=== PATIENT | male | born 1955 | race Two or more races ===

== ENCOUNTER 2018-10-15 18:16 | Inpatient (IN) | payer MEDICARE, OTHER ==
[2018-10-15 18:43] LABS: % BASOPHILS 0.7 % (0.0-2.0); % EOSINOPHILS 2.9 % (0.0-5.0); % LYMPHOCYTES 35.7 % (20.0-50.0); % MONOCYTES 10.9 % (2.0-10.0); % NEUTROPHILS 49.8 % (40.0-80.0); EOSINOPHILE ABSOLUTE 0.1 Th/cmm (0.1-0.4); HEMATOCRIT 27.7 % (41.0-60); LYMPHOCYTE ABSOLUTE 1.6 Th/cmm (1.5-3.0); MEAN CORPUSCULAR HEMOGLOBIN 26.1 pg (27.0-31.0); MEAN CORPUSCULAR HGB CONC 32.3 pg (28.0-36.0); MEAN PLATELET VOLUME 6.9 fl; MONOCYTE ABSOLUTE 0.5 Th/cmm (0.3-1.0); NEUTROPHILE ABSOLUTE 2.4 Th/cmm (1.8-8.0); PLATELET COUNT 216 Th/cmm (150-400); RED BLOOD COUNT 3.42 Mil/cmm (3.80-5.80); RED CELL DISTRIBUTION WIDTH 25.8 % (11.5-20.0); WHITE BLOOD COUNT 4.6 Th/cmm (4.8-10.8)
[2018-10-15 18:48] LABS: URINE SOURCE CLEAN C
[2018-10-15 18:55] LABS: URINE BILIRUBIN NEGATIVE (NEGATIVE); URINE BLOOD NEGATIVE (NEGATIVE); URINE GLUCOSE (UA) NEGATIVE (NEGATIVE); URINE KETONE NEGATIVE (NEGATIVE); URINE LEUKOCYTE ESTERASE NEGATIVE (NEGATIVE); URINE MICROSCOPIC INDICATED? YES; URINE NITRATE POSITIVE (NEGATIVE); URINE PH 7.5 (4.6 - 8.0); URINE PROTEIN NEGATIVE (NEGATIVE)
[2018-10-15 18:58] LABS: ALB/GLOB RATIO 0.7 (1.0-1.8); ALKALINE PHOSPHATASE 162 U/L (34-104); ANION GAP 7.7 (7.0-16.0); BILIRUBIN,TOTAL 0.9 mg/dL (0.3-1.0); BUN - UREA NITROGEN 11 mg/dL (7-25); CALCIUM SERUM 8.5 mg/dL (8.6-10.3); CARBON DIOXIDE 27.5 mEq/L (21.0-31.0); CHLORIDE 103 mEq/L (98-107); CREATININE - SERUM 0.6 mg/dL (0.7-1.3); GFR AFRICAN-AMERICAN > 60.0 ml/min (>90); GFR NON AFRICAN-AMERICAN > 60.0 ml/min; GLUCOSE 93 mg/dL (70-105); MAGNESIUM 1.8 mg/dL (1.9-2.7); PHOSPHOROUS 3.5 mg/dL (2.5-5.0); POTASSIUM SERUM 4.2 mEq/L (3.5-5.1); SGOT 72 U/L (13-39); SGPT/ALT 23 U/L (7-52); SODIUM SERUM 134 mEq/L (136-145); TOTAL PROTEIN,SERUM 7.4 gm/dL (6.0-8.3)
[2018-10-15 19:24] LABS: URINE CLARITY SLIGHT HAZY (CLEAR); URINE COLOR STRAW; URINE RBC NONE SEEN /hpf (0-5)
[2018-10-15 19:25] LABS: URINE BACTERIA FEW /hpf (NONE SEEN); URINE EPITHELIAL CELLS RARE /lpf (FEW)
--- NOTE | 2018-10-15 19:51 | ED Physician Chart ---
ED Chief Complaint/HPI - Patient Information Date Seen:: 10/15/18 Time Seen:: 18:30 Chief Complaint:: increased agitation History of Present Illness:: increased agitation Allergies:: Allergies Allergy/AdvReac Type Severity Reaction Status Date / Time codeine Allergy Verified 10/15/18 18:30 ibuprofen Allergy Verified 10/15/18 18:30 Vitals:: Vital Signs - 8 hr 10/15/18 18:30 Temp 98.2 F HR 59 RR 18 BP 105/54 O2 Sat % 98 Review:: Nurse's Note Reviewed, Transfer documents Reviewed ED Review of Systems - Review of Systems General/Constitutional: No fever, No chills, No weight loss, No weakness, No diaphoresis, No edema, No loss of appetite Skin: No skin lesions, No rash, No bruising Head: No headache, No light-headedness Eyes: No loss of vision, No pain, No diplopia ENT: No earache, No nasal drainage, No sore throat, No tinnitus Neck: No neck pain, No swelling, No thyromegaly, No stiffness, No mass noted Cardio Vascular: No chest pain, No palpitations, No PND, No orthopnea, No edema Pulmonary: No SOB, No cough, No sputum, No wheezing GI: No nausea, No vomiting, No diarrhea, No pain, No melena, No hematochezia, No constipation, No hematemesis G/U: No dysuria, No frequency, No hematuria Musculoskeletal: No bone or joint pain, No back pain, No muscle pain, Other ( LLE swelling) Endocrine: No polyuria, No polydipsia Hematopoietic: No bruising, No lymphadenopathy Allergic/Immuno: No urticaria, No angioedema Neurological: No syncope, No focal symptoms, No weakness, No paresthesia, No headache, No seizure, No dizziness, No confusion, No vertigo ED Past Medical History - Past Medical History Obtainable: No Past Medical History: PUD/GERD, Seizures, Other (chronic viral hepatitis C; anemia) Surgical History: other (LLE tib/fib years ago.) Family Medical History - Family Member Mother History Unknown: Yes ED Physical Exam - Physical Examination General/Constitutional: Awake, Well-developed, well-nourished, Alert, No distress, GCS 15, Non-toxic appearing, Ambulatory Other Gen/Cons comments:: unkempt appearing. Head: Atraumatic Eyes: Lids, conjuctiva normal, PERRL, EOMI ENMT: External ears, nose nl Neck: Nontender, No nuchal rigidity, No stridor Respiratory: Nl effort/Exclusion, Clear to Auscultation, No Wheeze/Rhonchi/Rales Cardio Vascular: RRR, No murmur, gallop, rubs, NL S1 S2 GI: No tenderness/rebounding/guarding, No organomegaly, No hernia, Normal BS's, Nondistended, No mass/bruits, No McBurney tenderness : No CVA tenderness Other Extremities comments:: LLE is two times larger than the RLE. Neuro/Psych: No focal deficits ED Labs/Radiology/EKG Results - Lab Results Results: Laboratory Tests 10/15/18 10/15/18 10/15/18 18:35 18:35 18:35 WBC 4.6 L RBC 3.42 L Hgb 9.0 L Hct 27.7 L MCV 81.0 MCH 26.1 L MCHC Differential 32.3 RDW 25.8 H Plt Count 216 MPV 6.9 Neutrophils % 49.8 Lymphocytes % 35.7 Monocytes % 10.9 H Eosinophils % 2.9 Basophils % 0.7 D-Dimer 480 H Sodium 134 L Potassium 4.2 Chloride 103 Carbon Dioxide 27.5 Anion Gap 7.7 BUN 11 Creatinine 0.6 L Est GFR ( Amer) > 60.0 Est GFR (Non-Af Amer) > 60.0 BUN/Creatinine Ratio 18.3 Glucose 93 Calcium 8.5 L Phosphorus 3.5 Magnesium 1.8 L Total Bilirubin 0.9 AST 72 H ALT 23 Alkaline Phosphatase 162 H Total Protein 7.4 Albumin 3.0 L Globulin 4.4 Albumin/Globulin Ratio 0.7 L Urine Source Urine Color Urine Clarity Urine pH Ur Specific [place] Urine Protein Urine Glucose (UA) Urine Ketones Urine Blood Urine Nitrate Urine Bilirubin Urine Urobilinogen Ur Leukocyte Esterase Urine RBC Urine WBC Ur Epithelial Cells Urine Bacteria 10/15/18 18:44 WBC RBC Hgb Hct MCV MCH MCHC Differential RDW Plt Count MPV Neutrophils % Lymphocytes % Monocytes % Eosinophils % Basophils % D-Dimer Sodium Potassium Chloride Carbon Dioxide Anion Gap BUN Creatinine Est GFR ( Amer) Est GFR (Non-Af Amer) BUN/Creatinine Ratio Glucose Calcium Phosphorus Magnesium Total Bilirubin AST ALT Alkaline Phosphatase Total Protein Albumin Globulin Albumin/Globulin Ratio Urine Source CLEAN C Urine Color STRAW Urine Clarity SLIGHT HAZY Urine pH 7.5 Ur Specific [place] 1.020 Urine Protein NEGATIVE Urine Glucose (UA) NEGATIVE Urine Ketones NEGATIVE Urine Blood NEGATIVE Urine Nitrate POSITIVE H Urine Bilirubin NEGATIVE Urine Urobilinogen 1.0 Ur Leukocyte Esterase NEGATIVE Urine RBC NONE SEEN Urine WBC 2-5 Ur Epithelial Cells RARE Urine Bacteria FEW ED Assessment - Assessment General Assessment: sign out given to Dr. Main to check the LLE ultrasound to r/o DVT and determine disposition and/or clearance for geropsych. patient's hematocrit is down to 27 from 28.9 on 10/08/2018. ED Septic Shock - . Is Septic Shock (SBP<90, OR Lactate>4 mmol\L) present?: No - <6hrs of presentation: Vital Signs: Vital Signs - 8 hr 10/15/18 18:30 Temp 98.2 F HR 59 RR 18 BP 105/54 O2 Sat % 98 ED Reassessment (Disposition) - Reassessment Reassessment Condition:: Unchanged - Diagnosis Diagnosis:: Increased agitation LLE swelling, r/o DVT Elevated d-dimer Anemia, hematocrit down to 27 from 28.9 on 10/08/2018 Elevated liver function test Early urinary tract infection
[2018-10-15] MEDS ORDERED: Sulfamethoxazole/TMP 800/160mg Tab PO ONE (19:57)
[2018-10-15] MEDS ORDERED: Sulfamethoxazole/TMP 800/160mg Tab ONE (21:03)
[2018-10-15 22:04] VITALS: BP 153/98
[2018-10-15] MEDS ORDERED: Maalox 30 mL Cup PO PRN (22:06)
[2018-10-15 22:28] LABS: CHOLESTEROL 90 mg/dL (<200); HDL -HIGH DENSITY LIPOPROTEIN 43 mg/dL (23-92); TRIGLYCERIDES 37 mg/dL (<150)
[2018-10-16] MEDS ORDERED: NADOLOL 20 MG PO SCH (09:00)
--- NOTE | 2018-10-16 09:00 | Diagnostic Imaging Report ---
Left lower extremity Doppler venous ultrasound exam HISTORY: Pain/swelling Sonographic sector images were obtained through the deep venous systems of the left leg. Associated Doppler data was obtained. The exam demonstrates patency of the common femoral, superficial femoral, popliteal, and posterior tibial veins. Specifically, no thrombus is seen. There are normal compressibility and augmentation responses. 2 rounded densities seen within the left groin region. The largest measures 1.5 cm. Echogenic centimeters are consistent with mildly enlarged lymph nodes. IMPRESSION: 1. No evidence of deep vein trophoblast 2. Findings consistent with mildly enlarged lymph nodes within the left groin area
[2018-10-16] MEDS: Pantoprazole 40 mg/Packet PO SCH (09:09)
[2018-10-16] MEDS: Ferrous Sulfate 325 MG TAB PO SCH (09:09)
[2018-10-16] MEDS: Multivitamin Tab PO SCH (09:09)
[2018-10-16 10:09] LABS: AMPHETAMINE URINE NEGATIVE (NEGATIVE); BARBITURATES URINE NEGATIVE (NEGATIVE); BENZODIAZEPINES QUAL URINE NEGATIVE (NEGATIVE); CANNABINOID THC NEGATIVE (NEGATIVE); COCAINE METABOLITE QUAL URINE NEGATIVE (NEGATIVE); METHADONE URINE NEGATIVE (NEGATIVE); METHAMPHETAMINES QUAL URINE NEGATIVE (NEGATIVE); OPIATES (MORPHINE) QUAL. URINE NEGATIVE (NEGATIVE); PHENCYCLIDINE (PCP) URINE NEGATIVE (NEGATIVE); TRICYCLICS (TCA) QUAL. URINE NEGATIVE (NEGATIVE)
--- NOTE | 2018-10-16 18:22 | History & Physical ---
ADMIT DATE: 10/16/2018 CHIEF COMPLAINT: Agitation. HISTORY OF PRESENT ILLNESS: This is a 63-year-old male, who is a custodial resident, admitted to the Geropsych Unit due to 1-day history of agitation. PAST MEDICAL HISTORY: PUD, GERD, seizures, chronic viral hepatitis C, and anemia. PAST SURGICAL HISTORY: Left lower extremity tibia and fibula surgery. ALLERGIES: CODEINE, IBUPROFEN. MEDICATIONS: Please see medication list. FAMILY HISTORY: Noncontributory. REVIEW OF SYSTEMS: GENERAL: Denies any fever and chills. CARDIOVASCULAR: Denies chest pain. RESPIRATORY: Denies shortness of breath. GASTROINTESTINAL: Denies nausea, vomiting, abdominal pain. GENITOURINARY: Denies increased frequency or dysuria. NEUROLOGIC: No headaches, seizures, or syncope. All systems reviewed and are negative. PHYSICAL EXAMINATION: GENERAL: The patient is well developed, well nourished, no apparent distress. VITAL SIGNS: Temperature 97.8, heart rate 62, blood pressure 153/98, respiration 18, O2 94%. HEENT: Head; normocephalic, atraumatic. NECK: Supple. No mass. LUNGS: Clear bilaterally. HEART: Regular rhythm. ABDOMEN: Soft, nontender. LABORATORY DATA: WBC 4.6, H and H 9.0, hematocrit 27.7. D-dimer 480. Sodium 134, potassium 4.2, chloride 103, BUN 11, creatinine 0.6, calcium 8.5, magnesium 1.8. DIAGNOSTICS: The patient had a bilateral lower extremity ultrasound done, impression is no evidence of DVT. ASSESSMENT: Agitation, gastroesophageal reflux disease, seizures, viral hepatitis C, anemia. Leukopenia, microcytic anemia, hyponatremia, hypocalcemia, hypomagnesemia. PLAN: The patient to continue custodial medications. Fall precautions will be initiated. Continue with ferrous sulfate daily. We will continue to monitor this patient. JOB# [id number]
--- NOTE | 2018-10-17 03:36 | Psychiatric Evaluation ---
DATE OF SERVICE: 10/15/2018 CHIEF COMPLAINT: "Increased agitation" according to the staff at [facility]. HISTORY OF PRESENT ILLNESS: The patient is a 63-year-old male who lives in [facility]. The patient was transferred to the hospital under my care because of increased agitation and increased irritability. The patient also has not been able to follow staff direction. He also is still on the unit and upon arrival, is angry and agitated and in irritable mood. He also needs lots of redirections with difficulty redirecting him. The patient has been taking Thorazine 200 mg twice a day and Seroquel 200 mg twice a day as well as Topamax 100 mg twice a day and Lexapro 10 mg every day with no help. He also at times seems to have refused to take medications. DICTATION ENDS HERE. JOB# [id number]
[2018-10-17] MEDS: Ferrous Sulfate 325 MG TAB PO SCH (09:09)
[2018-10-17] MEDS: Multivitamin Tab PO SCH (09:10)
[2018-10-17] MEDS: Pantoprazole 40 mg/Packet PO SCH (09:10)
--- NOTE | 2018-10-17 10:43 | Internal Medicine Prog Note ---
Internal Medicine Subjective - Subjective Service Date: 10/17/18 Patient seen and examined:: with staff, chart reviewed Patient is:: awake, verbal, talking, agitated Patient Complaints of:: other (General weakness.) Per staff patient has:: no adverse event, no episodes of fall Internal Medicine Objective - Results Result Diagrams: 10/15/18 18:35 10/15/18 18:35 Recent Labs: Laboratory Last Values WBC 4.6 Th/cmm (4.8-10.8) L 10/15/18 18:35 RBC 3.42 Mil/cmm (3.80-5.80) L 10/15/18 18:35 Hgb 9.0 gm/dL (12-16) L 10/15/18 18:35 Hct 27.7 % (41.0-60) L 10/15/18 18:35 MCV 81.0 fl (80-99) 10/15/18 18:35 MCH 26.1 pg (27.0-31.0) L 10/15/18 18:35 MCHC Differential 32.3 pg (28.0-36.0) 10/15/18 18:35 RDW 25.8 % (11.5-20.0) H 10/15/18 18:35 Plt Count 216 Th/cmm (150-400) 10/15/18 18:35 MPV 6.9 fl 10/15/18 18:35 Neutrophils % 49.8 % (40.0-80.0) 10/15/18 18:35 Lymphocytes % 35.7 % (20.0-50.0) 10/15/18 18:35 Monocytes % 10.9 % (2.0-10.0) H 10/15/18 18:35 Eosinophils % 2.9 % (0.0-5.0) 10/15/18 18:35 Basophils % 0.7 % (0.0-2.0) 10/15/18 18:35 D-Dimer 480 ng/mL (100-400) H 1819 18:35 Sodium 134 mEq/L (136-145) L 18 18:35 Potassium 4.2 mEq/L (3.5-5.1) 10/15/18 18:35 Chloride 103 mEq/L (98-107) 10/15/18 18:35 Carbon Dioxide 27.5 mEq/L (21.0-31.0) 10/15/18 18:35 Anion Gap 7.7 (7.0-16.0) 10/15/18 18:35 BUN 11 mg/dL (7-25) 10/15/18 18:35 Creatinine 0.6 mg/dL (0.7-1.3) L 10/15/18 18:35 Est GFR ( Amer) > 60.0 ml/min (>90) 10/15/18 18:35 Est GFR (Non-Af Amer) > 60.0 ml/min 10/15/18 18:35 BUN/Creatinine Ratio 18.3 10/15/18 18:35 Glucose 93 mg/dL (70-105) 10/15/18 18:35 Calcium 8.5 mg/dL (8.6-10.3) L 10/15/18 18:35 Phosphorus 3.5 mg/dL (2.5-5.0) 10/15/18 18:35 Magnesium 1.8 mg/dL (1.9-2.7) L 10/15/18 18:35 Total Bilirubin 0.9 mg/dL (0.3-1.0) 10/15/18 18:35 AST 72 U/L (13-39) H 10/15/18 18:35 ALT 23 U/L (7-52) 10/15/18 18:35 Alkaline Phosphatase 162 U/L (34-104) H 10/15/18 18:35 Total Protein 7.4 gm/dL (6.0-8.3) 10/15/18 18:35 Albumin 3.0 gm/dL (4.2-5.5) L 10/15/18 18:35 Globulin 4.4 gm/dL 10/15/18 18:35 Albumin/Globulin Ratio 0.7 (1.0-1.8) L 10/15/18 18:35 Triglycerides 37 mg/dL (<150) 10/15/18 18:35 Cholesterol 90 mg/dL (<200) 10/15/18 18:35 LDL Cholesterol Direct 43 mg/dL (75-193) L 10/15/18 18:35 HDL Cholesterol 43 mg/dL (23-92) 10/15/18 18:35 Urine Source CLEAN C 10/15/18 18:44 Urine Color STRAW 10/15/18 18:44 Urine Clarity SLIGHT HAZY (CLEAR) 10/15/18 18:44 Urine pH 7.5 (4.6 - 8.0) 10/15/18 18:44 Ur Specific [place] 1.020 (1.005-1.030) 10/15/18 18:44 Urine Protein NEGATIVE mg/dL (NEGATIVE) 10/15/18 18:44 Urine Glucose (UA) NEGATIVE mg/dL (NEGATIVE) 10/15/18 18:44 Urine Ketones NEGATIVE mg/dL (NEGATIVE) 10/15/18 18:44 Urine Blood NEGATIVE (NEGATIVE) 10/15/18 18:44 Urine Nitrate POSITIVE (NEGATIVE) H 10/15/18 18:44 Urine Bilirubin NEGATIVE (NEGATIVE) 10/15/18 18:44 Urine Urobilinogen 1.0 E.U./dL (0.2 - 1.0) 10/15/18 18:44 Ur Leukocyte Esterase NEGATIVE (NEGATIVE) 10/15/18 18:44 Urine RBC NONE SEEN /hpf (0-5) 10/15/18 18:44 Urine WBC 2-5 /hpf (0-5) 10/15/18 18:44 Ur Epithelial Cells RARE /lpf (FEW) 10/15/18 18:44 Urine Bacteria FEW /hpf (NONE SEEN) 10/15/18 18:44 Urine Opiates Screen NEGATIVE (NEGATIVE) 10/15/18 18:44 Urine Methadone Screen NEGATIVE (NEGATIVE) 10/15/18 18:44 Ur Barbiturates Screen NEGATIVE (NEGATIVE) 10/15/18 18:44 Ur Tricyclics Screen NEGATIVE (NEGATIVE) 10/15/18 18:44 Ur Phencyclidine Scrn NEGATIVE (NEGATIVE) 10/15/18 18:44 Amphetamines Screen NEGATIVE (NEGATIVE) 10/15/18 18:44 U Methamphetamines Scrn NEGATIVE (NEGATIVE) 10/15/18 18:44 U Benzodiazepines Scrn NEGATIVE (NEGATIVE) 10/15/18 18:44 U Cocaine Metab Screen NEGATIVE (NEGATIVE) 10/15/18 18:44 U Cannabinoids Screen NEGATIVE (NEGATIVE) 10/15/18 18:44 - Physical Exam Vitals and I&O: Vital Signs Temp 97.3 F 10/17/18 06:34 Pulse 70 10/17/18 09:09 Resp 20 10/17/18 06:34 BP 135/78 10/17/18 09:09 Pulse Ox 99 10/17/18 06:34 Intake & Output 10/16/18 10/17/18 10/17/18 18:59 06:59 18:59 Intake Total 1800 120 Balance 1800 120 Intake: Oral 1800 120 Other: # Voids 4 1 # Bowel Movements 1 0 Active Medications: Current Medications Acetaminophen (Tylenol) 650 mg PO Q4HR PRN PRN Reason: Mild Pain / Temp above 100 Stop: 12/14/18 22:12 Last Admin: 10/16/18 14:09 Dose: 650 mg Al Hydrox/Mg Hydrox/Simethicone (Maalox) 30 ml PO Q4HR PRN PRN Reason: GI DISTRESS Stop: 12/14/18 22:05 Ascorbic Acid (Vitamin C) 500 mg PO DAILY [facility] Stop: 12/15/18 08:59 Last Admin: 10/17/18 09:10 Dose: 500 mg Ferrous Sulfate (Iron) 325 mg PO DAILY [facility] Stop: 12/15/18 08:59 Last Admin: 10/17/18 09:09 Dose: 325 mg Folic Acid (Folate) 1 mg PO DAILY [facility] Stop: 12/15/18 08:59 Last Admin: 10/17/18 09:09 Dose: 1 mg Lorazepam (Ativan) 0.5 mg PO Q4HR PRN; Protocol PRN Reason: Agitation Stop: 11/14/18 22:05 Last Admin: 10/17/18 09:09 Dose: 0.5 mg Metoprolol Tartrate (Lopressor) 50 mg PO BID [facility] Stop: 12/15/18 08:59 Last Admin: 10/17/18 09:09 Dose: 50 mg Multivitamins/Vitamin C (Theragran) 1 tab PO DAILY [facility] Stop: 12/15/18 08:59 Last Admin: 10/17/18 09:10 Dose: 1 tab Pantoprazole Sodium (Protonix) 40 mg PO DAILY [facility] Stop: 12/15/18 08:59 Last Admin: 10/17/18 09:10 Dose: 40 mg Quetiapine Fumarate (Seroquel) 25 mg PO BID [facility]; Protocol Stop: 12/15/18 08:59 Last Admin: 10/17/18 09:09 Dose: 25 mg Tramadol HCl (Ultram) 50 mg PO Q8H PRN PRN Reason: Pain (Severe) Stop: 12/14/18 22:13 Last Admin: 10/16/18 19:54 Dose: 50 mg Zolpidem Tartrate (Ambien) 5 mg PO HS PRN PRN Reason: Insomnia Stop: 12/14/18 22:05 General: weak, other (Very agitated and Irritable.) HEENT: PERRLA Neck: Supple, No JVD Lungs: CTAB Cardiovascular: Normal S1, Normal S2 Abdomen: soft, non-distended Extremities: other (Hx of left lower extremity tibia and fibula surgery.) Neurological: no change, disorganized Internal Medicine Assmt/Plan - Assessment Assessment: Agitation Irritable Anemia Chronic Viral Hep C PUD GERD Hyponatremia Hypocalcemia Hypomagnesemia History of Seizures - Plan Plan: Continue to monitor patient closely Monitor Labs, Hemoglobin levels Continue present meds as directed Continue taking Ferrous Sulfate daily Monitor diet Fall precaution Seizure precaution Patient to followup with Dr. Montejo for Psych management Continue present care management Nutritional Asmnt/Malnutr-PDOC - Dietary Evaluation Malnutrition Findings (Please click <Entered> for more info): see orders
--- NOTE | 2018-10-17 23:02 | Progress Notes ---
DATE: SUBJECTIVE: Chart reviewed and the patient interviewed. Also discussed the patient's condition with the staff and reviewed records and labs. The patient is complaining of swollen left leg and the patient has pitting edema and for real, his left leg is swollen. He is still agitated and he is still anxious and still needs lots of redirections. The patient also continue pacing and asking different questions to the people and inclusive. Otherwise, the patient is compliant with taking his medications with no side effects. ASSESSMENT: The patient is still confused and agitated. TREATMENT PLAN: Continue to monitor his behavior and his condition closely. Also, we will ask Dr. Recinos to evaluate his leg condition and will continue to follow up. [facility]# [id number]
[2018-10-18] MEDS: Pantoprazole 40 mg/Packet PO SCH (08:52)
[2018-10-18] MEDS: Ferrous Sulfate 325 MG TAB PO SCH (08:52)
[2018-10-18] MEDS: Multivitamin Tab PO SCH (08:53)
--- NOTE | 2018-10-18 15:32 | Progress Notes ---
DATE: 10/18/2018 SUBJECTIVE: Chart reviewed and the patient interviewed. Also discussed the patient's condition with the staff and reviewed records and labs. The patient is still anxious and is still in a depressed mood. The patient also is still suspicious at times and is still paranoid. He also is still interacting minimally. The patient also wants to be left alone. Otherwise, the patient is compliant with taking his medications and no side effects of medications. ASSESSMENT: The patient is still anxious and is still in irritable mood. TREATMENT PLAN: Continue to monitor his behavior and his condition closely. Also, continue adjusting psychotropic medications and follow up closely. [facility]# [id number]
--- NOTE | 2018-10-18 20:15 | Internal Medicine Prog Note ---
Internal Medicine Subjective - Subjective Service Date: 10/18/18 Patient is:: awake, verbal, talking, agitated Patient Complaints of:: other (General weakness.) Per staff patient has:: no adverse event, no episodes of fall Internal Medicine Objective - Results Result Diagrams: 10/15/18 18:35 10/15/18 18:35 Recent Labs: Laboratory Last Values WBC 4.6 Th/cmm (4.8-10.8) L 10/15/18 18:35 RBC 3.42 Mil/cmm (3.80-5.80) L 10/15/18 18:35 Hgb 9.0 gm/dL (12-16) L 10/15/18 18:35 Hct 27.7 % (41.0-60) L 10/15/18 18:35 MCV 81.0 fl (80-99) 10/15/18 18:35 MCH 26.1 pg (27.0-31.0) L 10/15/18 18:35 MCHC Differential 32.3 pg (28.0-36.0) 10/15/18 18:35 RDW 25.8 % (11.5-20.0) H 10/15/18 18:35 Plt Count 216 Th/cmm (150-400) 10/15/18 18:35 MPV 6.9 fl 10/15/18 18:35 Neutrophils % 49.8 % (40.0-80.0) 10/15/18 18:35 Lymphocytes % 35.7 % (20.0-50.0) 10/15/18 18:35 Monocytes % 10.9 % (2.0-10.0) H 10/15/18 18:35 Eosinophils % 2.9 % (0.0-5.0) 10/15/18 18:35 Basophils % 0.7 % (0.0-2.0) 10/15/18 18:35 D-Dimer 480 ng/mL (100-400) H 10/15/18 18:35 Sodium 134 mEq/L (136-145) L 10/15/18 18:35 Potassium 4.2 mEq/L (3.5-5.1) 10/15/18 18:35 Chloride 103 mEq/L (98-107) 10/15/18 18:35 Carbon Dioxide 27.5 mEq/L (21.0-31.0) 10/15/18 18:35 Anion Gap 7.7 (7.0-16.0) 10/15/18 18:35 BUN 11 mg/dL (7-25) 10/15/18 18:35 Creatinine 0.6 mg/dL (0.7-1.3) L 10/15/18 18:35 Est GFR ( Amer) > 60.0 ml/min (>90) 10/15/18 18:35 Est GFR (Non-Af Amer) > 60.0 ml/min 10/15/18 18:35 BUN/Creatinine Ratio 18.3 10/15/18 18:35 Glucose 93 mg/dL (70-105) 10/15/18 18:35 Calcium 8.5 mg/dL (8.6-10.3) L 10/15/18 18:35 Phosphorus 3.5 mg/dL (2.5-5.0) 10/15/18 18:35 Magnesium 1.8 mg/dL (1.9-2.7) L 10/15/18 18:35 Total Bilirubin 0.9 mg/dL (0.3-1.0) 10/15/18 18:35 AST 72 U/L (13-39) H 10/15/18 18:35 ALT 23 U/L (7-52) 10/15/18 18:35 Alkaline Phosphatase 162 U/L (34-104) H 10/15/18 18:35 Total Protein 7.4 gm/dL (6.0-8.3) 10/15/18 18:35 Albumin 3.0 gm/dL (4.2-5.5) L 10/15/18 18:35 Globulin 4.4 gm/dL 10/15/18 18:35 Albumin/Globulin Ratio 0.7 (1.0-1.8) L 10/15/18 18:35 Triglycerides 37 mg/dL (<150) 10/15/18 18:35 Cholesterol 90 mg/dL (<200) 10/15/18 18:35 LDL Cholesterol Direct 43 mg/dL (75-193) L 10/15/18 18:35 HDL Cholesterol 43 mg/dL (23-92) 10/15/18 18:35 Urine Source CLEAN C 10/15/18 18:44 Urine Color STRAW 10/15/18 18:44 Urine Clarity SLIGHT HAZY (CLEAR) 10/15/18 18:44 Urine pH 7.5 (4.6 - 8.0) 10/15/18 18:44 Ur Specific [place] 1.020 (1.005-1.030) 10/15/18 18:44 Urine Protein NEGATIVE mg/dL (NEGATIVE) 10/15/18 18:44 Urine Glucose (UA) NEGATIVE mg/dL (NEGATIVE) 10/15/18 18:44 Urine Ketones NEGATIVE mg/dL (NEGATIVE) 10/15/18 18:44 Urine Blood NEGATIVE (NEGATIVE) 10/15/18 18:44 Urine Nitrate POSITIVE (NEGATIVE) H 10/15/18 18:44 Urine Bilirubin NEGATIVE (NEGATIVE) 10/15/18 18:44 Urine Urobilinogen 1.0 E.U./dL (0.2 - 1.0) 10/15/18 18:44 Ur Leukocyte Esterase NEGATIVE (NEGATIVE) 10/15/18 18:44 Urine RBC NONE SEEN /hpf (0-5) 10/15/18 18:44 Urine WBC 2-5 /hpf (0-5) 10/15/18 18:44 Ur Epithelial Cells RARE /lpf (FEW) 10/15/18 18:44 Urine Bacteria FEW /hpf (NONE SEEN) 10/15/18 18:44 Urine Opiates Screen NEGATIVE (NEGATIVE) 10/15/18 18:44 Urine Methadone Screen NEGATIVE (NEGATIVE) 10/15/18 18:44 Ur Barbiturates Screen NEGATIVE (NEGATIVE) 10/15/18 18:44 Ur Tricyclics Screen NEGATIVE (NEGATIVE) 10/15/18 18:44 Ur Phencyclidine Scrn NEGATIVE (NEGATIVE) 10/15/18 18:44 Amphetamines Screen NEGATIVE (NEGATIVE) 10/15/18 18:44 U Methamphetamines Scrn NEGATIVE (NEGATIVE) 10/15/18 18:44 U Benzodiazepines Scrn NEGATIVE (NEGATIVE) 10/15/18 18:44 U Cocaine Metab Screen NEGATIVE (NEGATIVE) 10/15/18 18:44 U Cannabinoids Screen NEGATIVE (NEGATIVE) 10/15/18 18:44 - Physical Exam Vitals and I&O: Vital Signs Temp 96.9 F 10/18/18 14:00 Pulse 64 10/18/18 17:23 Resp 20 10/18/18 14:00 BP 127/65 10/18/18 17:23 Pulse Ox 98 10/18/18 14:00 Intake & Output 10/18/18 10/18/18 10/19/18 06:59 18:59 06:59 Intake Total 960 Balance 960 Intake: Oral 960 Other: # Voids 4 # Bowel Movements 1 Active Medications: Current Medications Acetaminophen (Tylenol) 650 mg PO Q4HR PRN PRN Reason: Mild Pain / Temp above 100 Stop: 12/14/18 22:12 Last Admin: 10/16/18 14:09 Dose: 650 mg Acetaminophen (Tylenol) 325 mg PO DAILY [facility] Stop: 12/17/18 08:59 Last Admin: 10/18/18 08:52 Dose: 325 mg Al Hydrox/Mg Hydrox/Simethicone (Maalox) 30 ml PO Q4HR PRN PRN Reason: GI DISTRESS Stop: 12/14/18 22:05 Ascorbic Acid (Vitamin C) 500 mg PO DAILY [facility] Stop: 12/15/18 08:59 Last Admin: 10/18/18 08:53 Dose: 500 mg Ferrous Sulfate (Iron) 325 mg PO DAILY [facility] Stop: 12/15/18 08:59 Last Admin: 10/18/18 08:52 Dose: 325 mg Folic Acid (Folate) 1 mg PO DAILY [facility] Stop: 12/15/18 08:59 Last Admin: 10/18/18 08:53 Dose: 1 mg Lorazepam (Ativan) 0.5 mg PO Q4HR PRN; Protocol PRN Reason: Agitation Stop: 11/14/18 22:05 Last Admin: 10/18/18 17:23 Dose: 0.5 mg Metoprolol Tartrate (Lopressor) 50 mg PO BID [facility] Stop: 12/15/18 08:59 Last Admin: 10/18/18 17:23 Dose: 50 mg Multivitamins/Vitamin C (Theragran) 1 tab PO DAILY [facility] Stop: 12/17/18 08:59 Last Admin: 10/18/18 08:53 Dose: 1 tab Pantoprazole Sodium (Protonix) 40 mg PO DAILY [facility] Stop: 12/15/18 08:59 Last Admin: 10/18/18 08:52 Dose: 40 mg Quetiapine Fumarate (Seroquel) 25 mg PO BID [facility]; Protocol Stop: 12/15/18 08:59 Last Admin: 10/18/18 17:22 Dose: 25 mg Tramadol HCl (Ultram) 50 mg PO Q8H PRN PRN Reason: Pain (Severe) Stop: 12/14/18 22:13 Last Admin: 10/17/18 21:29 Dose: 50 mg Zolpidem Tartrate (Ambien) 5 mg PO HS PRN PRN Reason: Insomnia Stop: 12/14/18 22:05 Last Admin: 10/17/18 23:31 Dose: 5 mg General: weak, other (Very agitated and Irritable.) HEENT: PERRLA Neck: Supple, No JVD Lungs: CTAB Cardiovascular: Normal S1, Normal S2 Abdomen: soft, non-distended Extremities: other (Hx of left lower extremity tibia and fibula surgery.) Neurological: no change, disorganized Internal Medicine Assmt/Plan - Assessment Assessment: Agitation Irritable Anemia Chronic Viral Hep C PUD GERD Hyponatremia Hypocalcemia Hypomagnesemia History of Seizures - Plan Plan: continue feso4 fall precautions cpm Nutritional Asmnt/Malnutr-PDOC - Dietary Evaluation Malnutrition Findings (Please click <Entered> for more info): Nutritional Asmnt/Malnutrition Start: 10/18/18 13: 58 Text: Status: Complete Freq: Protocol: Document 10/18/18 13:58 LCHENG (Rec: 10/18/18 14:07 BRITTNEY ANN [email or web address]) Nutritional Asmnt/Malnutrition Patient General Information Nutritional Screening Moderate Risk Diagnosis Psychosis Pertinent Medical Hx/Surgical Hx PUD/GERD, seizrues, chronic viral hep C, anemia, LLE tib/ fib years ago Subjective Information Pt seen sitting in garfield-chair, confused, not able to participate communication. Per EMR, PO intake 100%. Current Diet Order/ Nutrition Support LORI Pertinent Medications vit C, iton, folate, theragran , protonix, seroquel Pertinent Labs 10/15 Na 134, Cr 0.6, Ca 8.5, Mg 1.8, Alb 3.0 Nutritional Hx/Data Height 5 ft 8 in Height (Calculated Centimeters) 172.7 Current Weight (lbs) 165 lb Weight (Calculated Kilograms) 74.8 Weight (Calculated Grams) 42474.7 [place] Body Weight 154 Body Mass Index (BMI) 25.0 Weight Status Overweight GI Symptoms GI Symptoms None Last BM 10/17 Difficult in: None Skin Integrity/Comment: intact Current %PO Good (75-100%) Estimated Nutritional Goals BEE in Kcals: Using Current wt Calories/Kcals/Kg 23-27 Kcals Calculated 1400-9548 Protein: Using Current wt Protein g/k Protein Calculated 75 Fluid: ml 1724-2024ml (1ml/kcal) Nutritional Problem No current Nutrition Prob Problem N/A Malnutrition Alert Is there a minimum of two criteria No selected? Query Text:Check all the applicable criteria. A minimum of two criteria are recommended for diagnosis of either severe or non-severe malnutrition. Malnutrition Related to Morbid Obesity Malnutrition related to morbid obesity No Intervention/Recommendation Comments 1. Continue with LORI diet as ordered. Nurses to assist with meals as needed. 2. Monitor PO intake, wt, labs and skin integrity 3. F/U as low risk in 7 days Expected Outcomes/Goals Expected Outcomes/Goals 1. PO intake to meet at least 75% of nutritional needs. 2. Wt stability, skin to remain intact, labs to approach WNL.
[2018-10-19] MEDS: Pantoprazole 40 mg/Packet PO SCH (09:34)
[2018-10-19] MEDS: Multivitamin Tab PO SCH (09:34)
[2018-10-19] MEDS: Ferrous Sulfate 325 MG TAB PO SCH (09:36)
[2018-10-20] MEDS: Ferrous Sulfate 325 MG TAB PO SCH (09:25)
[2018-10-20] MEDS: Multivitamin Tab PO SCH (09:27)
[2018-10-20] MEDS: Pantoprazole 40 mg/Packet PO SCH (09:28)
--- NOTE | 2018-10-20 10:13 | Internal Medicine Prog Note ---
Internal Medicine Subjective - Subjective Patient seen and examined:: chart reviewed Patient is:: awake, verbal, talking, other (confused) Patient Complaints of:: other (General weakness.) Per staff patient has:: no adverse event, no episodes of fall Internal Medicine Objective - Results Result Diagrams: 10/15/18 18:35 10/15/18 18:35 Recent Labs: Laboratory Last Values WBC 4.6 Th/cmm (4.8-10.8) L 10/15/18 18:35 RBC 3.42 Mil/cmm (3.80-5.80) L 10/15/18 18:35 Hgb 9.0 gm/dL (12-16) L 10/15/18 18:35 Hct 27.7 % (41.0-60) L 10/15/18 18:35 MCV 81.0 fl (80-99) 10/15/18 18:35 MCH 26.1 pg (27.0-31.0) L 10/15/18 18:35 MCHC Differential 32.3 pg (28.0-36.0) 10/15/18 18:35 RDW 25.8 % (11.5-20.0) H 10/15/18 18:35 Plt Count 216 Th/cmm (150-400) 10/15/18 18:35 MPV 6.9 fl 10/15/18 18:35 Neutrophils % 49.8 % (40.0-80.0) 10/15/18 18:35 Lymphocytes % 35.7 % (20.0-50.0) 10/15/18 18:35 Monocytes % 10.9 % (2.0-10.0) H 10/15/18 18:35 Eosinophils % 2.9 % (0.0-5.0) 10/15/18 18:35 Basophils % 0.7 % (0.0-2.0) 10/15/18 18:35 D-Dimer 480 ng/mL (100-400) H 10/15/18 18:35 Sodium 134 mEq/L (136-145) L 18 18:35 Potassium 4.2 mEq/L (3.5-5.1) 10/15/18 18:35 Chloride 103 mEq/L (98-107) 10/15/18 18:35 Carbon Dioxide 27.5 mEq/L (21.0-31.0) 10/15/18 18:35 Anion Gap 7.7 (7.0-16.0) 10/15/18 18:35 BUN 11 mg/dL (7-25) 10/15/18 18:35 Creatinine 0.6 mg/dL (0.7-1.3) L 10/15/18 18:35 Est GFR ( Amer) > 60.0 ml/min (>90) 10/15/18 18:35 Est GFR (Non-Af Amer) > 60.0 ml/min 10/15/18 18:35 BUN/Creatinine Ratio 18.3 10/15/18 18:35 Glucose 93 mg/dL (70-105) 10/15/18 18:35 Calcium 8.5 mg/dL (8.6-10.3) L 10/15/18 18:35 Phosphorus 3.5 mg/dL (2.5-5.0) 10/15/18 18:35 Magnesium 1.8 mg/dL (1.9-2.7) L 10/15/18 18:35 Total Bilirubin 0.9 mg/dL (0.3-1.0) 10/15/18 18:35 AST 72 U/L (13-39) H 10/15/18 18:35 ALT 23 U/L (7-52) 10/15/18 18:35 Alkaline Phosphatase 162 U/L (34-104) H 10/15/18 18:35 Total Protein 7.4 gm/dL (6.0-8.3) 10/15/18 18:35 Albumin 3.0 gm/dL (4.2-5.5) L 10/15/18 18:35 Globulin 4.4 gm/dL 10/15/18 18:35 Albumin/Globulin Ratio 0.7 (1.0-1.8) L 10/15/18 18:35 Triglycerides 37 mg/dL (<150) 10/15/18 18:35 Cholesterol 90 mg/dL (<200) 10/15/18 18:35 LDL Cholesterol Direct 43 mg/dL (75-193) L 10/15/18 18:35 HDL Cholesterol 43 mg/dL (23-92) 10/15/18 18:35 Urine Source CLEAN C 10/15/18 18:44 Urine Color STRAW 10/15/18 18:44 Urine Clarity SLIGHT HAZY (CLEAR) 10/15/18 18:44 Urine pH 7.5 (4.6 - 8.0) 10/15/18 18:44 Ur Specific [place] 1.020 (1.005-1.030) 10/15/18 18:44 Urine Protein NEGATIVE mg/dL (NEGATIVE) 10/15/18 18:44 Urine Glucose (UA) NEGATIVE mg/dL (NEGATIVE) 10/15/18 18:44 Urine Ketones NEGATIVE mg/dL (NEGATIVE) 10/15/18 18:44 Urine Blood NEGATIVE (NEGATIVE) 10/15/18 18:44 Urine Nitrate POSITIVE (NEGATIVE) H 10/15/18 18:44 Urine Bilirubin NEGATIVE (NEGATIVE) 10/15/18 18:44 Urine Urobilinogen 1.0 E.U./dL (0.2 - 1.0) 10/15/18 18:44 Ur Leukocyte Esterase NEGATIVE (NEGATIVE) 10/15/18 18:44 Urine RBC NONE SEEN /hpf (0-5) 10/15/18 18:44 Urine WBC 2-5 /hpf (0-5) 10/15/18 18:44 Ur Epithelial Cells RARE /lpf (FEW) 10/15/18 18:44 Urine Bacteria FEW /hpf (NONE SEEN) 10/15/18 18:44 Urine Opiates Screen NEGATIVE (NEGATIVE) 10/15/18 18:44 Urine Methadone Screen NEGATIVE (NEGATIVE) 10/15/18 18:44 Ur Barbiturates Screen NEGATIVE (NEGATIVE) 10/15/18 18:44 Ur Tricyclics Screen NEGATIVE (NEGATIVE) 10/15/18 18:44 Ur Phencyclidine Scrn NEGATIVE (NEGATIVE) 10/15/18 18:44 Amphetamines Screen NEGATIVE (NEGATIVE) 10/15/18 18:44 U Methamphetamines Scrn NEGATIVE (NEGATIVE) 10/15/18 18:44 U Benzodiazepines Scrn NEGATIVE (NEGATIVE) 10/15/18 18:44 U Cocaine Metab Screen NEGATIVE (NEGATIVE) 10/15/18 18:44 U Cannabinoids Screen NEGATIVE (NEGATIVE) 10/15/18 18:44 - Physical Exam Vitals and I&O: Vital Signs Temp 98 F 10/20/18 06:08 Pulse 98 10/20/18 09:27 Resp 18 10/20/18 06:08 BP 132/80 10/20/18 09:27 Pulse Ox 94 10/20/18 06:08 Intake & Output 10/19/18 10/20/18 10/20/18 18:59 06:59 18:59 Intake Total 1200 240 Balance 1200 240 Intake: Oral 1200 240 Other: # Voids 3 # Bowel Movements 1 0 Active Medications: Current Medications Acetaminophen (Tylenol) 650 mg PO Q4HR PRN PRN Reason: Mild Pain / Temp above 100 Stop: 12/14/18 22:12 Last Admin: 10/16/18 14:09 Dose: 650 mg Acetaminophen (Tylenol) 325 mg PO DAILY [facility] Stop: 12/17/18 08:59 Last Admin: 10/20/18 09:25 Dose: Not Given Al Hydrox/Mg Hydrox/Simethicone (Maalox) 30 ml PO Q4HR PRN PRN Reason: GI DISTRESS Stop: 12/14/18 22:05 Ascorbic Acid (Vitamin C) 500 mg PO DAILY [facility] Stop: 12/15/18 08:59 Last Admin: 10/20/18 09:27 Dose: 500 mg Ferrous Sulfate (Iron) 325 mg PO DAILY [facility] Stop: 12/15/18 08:59 Last Admin: 10/20/18 09:25 Dose: 325 mg Folic Acid (Folate) 1 mg PO DAILY [facility] Stop: 12/15/18 08:59 Last Admin: 10/20/18 09:25 Dose: 1 mg Lorazepam (Ativan) 0.5 mg PO Q4HR PRN; Protocol PRN Reason: Agitation Stop: 11/14/18 22:05 Last Admin: 10/20/18 09:33 Dose: 0.5 mg Metoprolol Tartrate (Lopressor) 50 mg PO BID [facility] Stop: 12/15/18 08:59 Last Admin: 10/20/18 09:27 Dose: 50 mg Multivitamins/Vitamin C (Theragran) 1 tab PO DAILY [facility] Stop: 12/17/18 08:59 Last Admin: 10/20/18 09:27 Dose: 1 tab Pantoprazole Sodium (Protonix) 40 mg PO DAILY [facility] Stop: 12/15/18 08:59 Last Admin: 10/20/18 09:28 Dose: 40 mg Quetiapine Fumarate (Seroquel) 25 mg PO BID [facility]; Protocol Stop: 12/15/18 08:59 Last Admin: 10/20/18 09:27 Dose: 25 mg Tramadol HCl (Ultram) 50 mg PO Q8H PRN PRN Reason: Pain (Severe) Stop: 12/14/18 22:13 Last Admin: 10/17/18 21:29 Dose: 50 mg Zolpidem Tartrate (Ambien) 5 mg PO HS PRN PRN Reason: Insomnia Stop: 12/14/18 22:05 Last Admin: 10/19/18 22:01 Dose: 5 mg General: weak, other (Irritable.) HEENT: PERRLA Neck: Supple, No JVD Lungs: CTAB Cardiovascular: Normal S1, Normal S2 Abdomen: soft, non-distended Extremities: other (Hx of left lower extremity tibia and fibula surgery.) Neurological: no change, disorganized Internal Medicine Assmt/Plan - Assessment Assessment: Agitation Irritable Anemia Chronic Viral Hep C PUD GERD Hyponatremia Hypocalcemia Hypomagnesemia History of Seizures - Plan Plan: Continue to monitor patient closely Monitor Labs, Hemoglobin levels Continue present meds as directed Continue taking Ferrous Sulfate daily Monitor diet Fall precaution Seizure precaution Patient to followup with Dr. Montejo for Psych management Continue present care management Nutritional Asmnt/Malnutr-PDOC - Dietary Evaluation Malnutrition Findings (Please click <Entered> for more info): Nutritional Asmnt/Malnutrition Start: 10/18/18 13: 58 Text: Status: Complete Freq: Protocol: Document 10/18/18 13:58 LCHENG (Rec: 10/18/18 14:07 LCHENG ANN [email or web address]) Nutritional Asmnt/Malnutrition Patient General Information Nutritional Screening Moderate Risk Diagnosis Psychosis Pertinent Medical Hx/Surgical Hx PUD/GERD, seizrues, chronic viral hep C, anemia, LLE tib/ fib years ago Subjective Information Pt seen sitting in garfield-chair, confused, not able to participate communication. Per EMR, PO intake 100%. Current Diet Order/ Nutrition Support LORI Pertinent Medications vit C, iton, folate, theragran , protonix, seroquel Pertinent Labs 10/15 Na 134, Cr 0.6, Ca 8.5, Mg 1.8, Alb 3.0 Nutritional Hx/Data Height 1.73 m Height (Calculated Centimeters) 172.7 Current Weight (lbs) 74.843 kg Weight (Calculated Kilograms) 74.8 Weight (Calculated Grams) 76817.7 [place] Body Weight 154 Body Mass Index (BMI) 25.0 Weight Status Overweight GI Symptoms GI Symptoms None Last BM 2/20 Difficult in: None Skin Integrity/Comment: intact Current %PO Good (75-100%) Estimated Nutritional Goals BEE in Kcals: Using Current wt Calories/Kcals/Kg 23-27 Kcals Calculated 5586-4304 Protein: Using Current wt Protein g/k Protein Calculated 75 Fluid: ml 1725-202ml (1ml/kcal) Nutritional Problem No current Nutrition Prob Problem N/A Malnutrition Alert Is there a minimum of two criteria No selected? Query Text:Check all the applicable criteria. A minimum of two criteria are recommended for diagnosis of either severe or non-severe malnutrition. Malnutrition Related to Morbid Obesity Malnutrition related to morbid obesity No Intervention/Recommendation Comments 1. Continue with LORI diet as ordered. Nurses to assist with meals as needed. 2. Monitor PO intake, wt, labs and skin integrity 3. F/U as low risk in 7 days Expected Outcomes/Goals Expected Outcomes/Goals 1. PO intake to meet at least 75% of nutritional needs. 2. Wt stability, skin to remain intact, labs to approach WNL.
--- NOTE | 2018-10-20 20:11 | Progress Notes ---
DATE: SUBJECTIVE: The patient was seen, chart reviewed, and findings were discussed with staff. The patient continues to be anxious, depressed as well as paranoid, appears to be responding to internal stimuli. Generally self isolates in his room. Otherwise, the patient has been compliant with his medication. Denies any undue side effects. PLAN: The patient continues to be anxious and irritable, so that he will require continued inpatient care center treatment. We will monitor the patient on a daily basis for response and titrate medication as needed. [facility]# [id number]
[2018-10-21] MEDS: Multivitamin Tab PO SCH (09:00)
[2018-10-21] MEDS: Ferrous Sulfate 325 MG TAB PO SCH (09:00)
[2018-10-21] MEDS: Pantoprazole 40 mg/Packet PO SCH (09:00)
--- NOTE | 2018-10-21 11:25 | Internal Medicine Prog Note ---
Internal Medicine Subjective - Subjective Patient seen and examined:: chart reviewed Patient is:: awake, verbal, talking, other (pt is anxious,depressed no signs of pain) Patient Complaints of:: other (General weakness.) Per staff patient has:: no adverse event, no episodes of fall Internal Medicine Objective - Results Result Diagrams: 10/15/18 18:35 10/15/18 18:35 Recent Labs: Laboratory Last Values WBC 4.6 Th/cmm (4.8-10.8) L 10/15/18 18:35 RBC 3.42 Mil/cmm (3.80-5.80) L 10/15/18 18:35 Hgb 9.0 gm/dL (12-16) L 10/15/18 18:35 Hct 27.7 % (41.0-60) L 10/15/18 18:35 MCV 81.0 fl (80-99) 10/15/18 18:35 MCH 26.1 pg (27.0-31.0) L 10/15/18 18:35 MCHC Differential 32.3 pg (28.0-36.0) 10/15/18 18:35 RDW 25.8 % (11.5-20.0) H 10/15/18 18:35 Plt Count 216 Th/cmm (150-400) 10/15/18 18:35 MPV 6.9 fl 10/15/18 18:35 Neutrophils % 49.8 % (40.0-80.0) 10/15/18 18:35 Lymphocytes % 35.7 % (20.0-50.0) 10/15/18 18:35 Monocytes % 10.9 % (2.0-10.0) H 10/15/18 18:35 Eosinophils % 2.9 % (0.0-5.0) 10/15/18 18:35 Basophils % 0.7 % (0.0-2.0) 10/15/18 18:35 D-Dimer 480 ng/mL (100-400) H 1819 18:35 Sodium 134 mEq/L (136-145) L 18 18:35 Potassium 4.2 mEq/L (3.5-5.1) 10/15/18 18:35 Chloride 103 mEq/L (98-107) 10/15/18 18:35 Carbon Dioxide 27.5 mEq/L (21.0-31.0) 10/15/18 18:35 Anion Gap 7.7 (7.0-16.0) 10/15/18 18:35 BUN 11 mg/dL (7-25) 10/15/18 18:35 Creatinine 0.6 mg/dL (0.7-1.3) L 10/15/18 18:35 Est GFR ( Amer) > 60.0 ml/min (>90) 10/15/18 18:35 Est GFR (Non-Af Amer) > 60.0 ml/min 10/15/18 18:35 BUN/Creatinine Ratio 18.3 10/15/18 18:35 Glucose 93 mg/dL (70-105) 10/15/18 18:35 Calcium 8.5 mg/dL (8.6-10.3) L 10/15/18 18:35 Phosphorus 3.5 mg/dL (2.5-5.0) 10/15/18 18:35 Magnesium 1.8 mg/dL (1.9-2.7) L 10/15/18 18:35 Total Bilirubin 0.9 mg/dL (0.3-1.0) 10/15/18 18:35 AST 72 U/L (13-39) H 10/15/18 18:35 ALT 23 U/L (7-52) 10/15/18 18:35 Alkaline Phosphatase 162 U/L (34-104) H 10/15/18 18:35 Total Protein 7.4 gm/dL (6.0-8.3) 10/15/18 18:35 Albumin 3.0 gm/dL (4.2-5.5) L 10/15/18 18:35 Globulin 4.4 gm/dL 10/15/18 18:35 Albumin/Globulin Ratio 0.7 (1.0-1.8) L 10/15/18 18:35 Triglycerides 37 mg/dL (<150) 10/15/18 18:35 Cholesterol 90 mg/dL (<200) 10/15/18 18:35 LDL Cholesterol Direct 43 mg/dL (75-193) L 10/15/18 18:35 HDL Cholesterol 43 mg/dL (23-92) 10/15/18 18:35 Urine Source CLEAN C 10/15/18 18:44 Urine Color STRAW 10/15/18 18:44 Urine Clarity SLIGHT HAZY (CLEAR) 10/15/18 18:44 Urine pH 7.5 (4.6 - 8.0) 10/15/18 18:44 Ur Specific [place] 1.020 (1.005-1.030) 10/15/18 18:44 Urine Protein NEGATIVE mg/dL (NEGATIVE) 10/15/18 18:44 Urine Glucose (UA) NEGATIVE mg/dL (NEGATIVE) 10/15/18 18:44 Urine Ketones NEGATIVE mg/dL (NEGATIVE) 10/15/18 18:44 Urine Blood NEGATIVE (NEGATIVE) 10/15/18 18:44 Urine Nitrate POSITIVE (NEGATIVE) H 10/15/18 18:44 Urine Bilirubin NEGATIVE (NEGATIVE) 10/15/18 18:44 Urine Urobilinogen 1.0 E.U./dL (0.2 - 1.0) 10/15/18 18:44 Ur Leukocyte Esterase NEGATIVE (NEGATIVE) 10/15/18 18:44 Urine RBC NONE SEEN /hpf (0-5) 10/15/18 18:44 Urine WBC 2-5 /hpf (0-5) 10/15/18 18:44 Ur Epithelial Cells RARE /lpf (FEW) 10/15/18 18:44 Urine Bacteria FEW /hpf (NONE SEEN) 10/15/18 18:44 Urine Opiates Screen NEGATIVE (NEGATIVE) 10/15/18 18:44 Urine Methadone Screen NEGATIVE (NEGATIVE) 10/15/18 18:44 Ur Barbiturates Screen NEGATIVE (NEGATIVE) 10/15/18 18:44 Ur Tricyclics Screen NEGATIVE (NEGATIVE) 10/15/18 18:44 Ur Phencyclidine Scrn NEGATIVE (NEGATIVE) 10/15/18 18:44 Amphetamines Screen NEGATIVE (NEGATIVE) 10/15/18 18:44 U Methamphetamines Scrn NEGATIVE (NEGATIVE) 10/15/18 18:44 U Benzodiazepines Scrn NEGATIVE (NEGATIVE) 10/15/18 18:44 U Cocaine Metab Screen NEGATIVE (NEGATIVE) 10/15/18 18:44 U Cannabinoids Screen NEGATIVE (NEGATIVE) 10/15/18 18:44 - Physical Exam Vitals and I&O: Vital Signs Temp 97.4 F 10/20/18 14:00 Pulse 72 10/21/18 09:05 Resp 20 10/20/18 14:00 BP 140/78 10/21/18 09:05 Pulse Ox 96 10/20/18 14:00 Intake & Output 10/20/18 10/21/18 10/21/18 18:59 06:59 18:59 Intake Total 900 120 Balance 900 120 Intake: Oral 900 120 Other: # Voids 3 3 # Bowel Movements 0 Active Medications: Current Medications Acetaminophen (Tylenol) 650 mg PO Q4HR PRN PRN Reason: Mild Pain / Temp above 100 Stop: 12/14/18 22:12 Last Admin: 10/21/18 03:58 Dose: 650 mg Acetaminophen (Tylenol) 325 mg PO DAILY [facility] Stop: 12/17/18 08:59 Last Admin: 10/21/18 09:00 Dose: 325 mg Al Hydrox/Mg Hydrox/Simethicone (Maalox) 30 ml PO Q4HR PRN PRN Reason: GI DISTRESS Stop: 12/14/18 22:05 Ascorbic Acid (Vitamin C) 500 mg PO DAILY [facility] Stop: 12/15/18 08:59 Last Admin: 10/21/18 09:00 Dose: 500 mg Ferrous Sulfate (Iron) 325 mg PO DAILY [facility] Stop: 12/15/18 08:59 Last Admin: 10/21/18 09:00 Dose: 325 mg Folic Acid (Folate) 1 mg PO DAILY [facility] Stop: 12/15/18 08:59 Last Admin: 10/21/18 09:00 Dose: 1 mg Lorazepam (Ativan) 0.5 mg PO Q4HR PRN; Protocol PRN Reason: Agitation Stop: 11/14/18 22:05 Last Admin: 10/21/18 11:24 Dose: 0.5 mg Metoprolol Tartrate (Lopressor) 50 mg PO BID [facility] Stop: 12/15/18 08:59 Last Admin: 10/21/18 09:05 Dose: 50 mg Multivitamins/Vitamin C (Theragran) 1 tab PO DAILY [facility] Stop: 12/17/18 08:59 Last Admin: 10/21/18 09:00 Dose: 1 tab Pantoprazole Sodium (Protonix) 40 mg PO DAILY [facility] Stop: 12/15/18 08:59 Last Admin: 10/21/18 09:00 Dose: 40 mg Quetiapine Fumarate (Seroquel) 25 mg PO BID [facility]; Protocol Stop: 12/15/18 08:59 Last Admin: 10/21/18 09:00 Dose: 25 mg Tramadol HCl (Ultram) 50 mg PO Q8H PRN PRN Reason: Pain (Severe) Stop: 12/14/18 22:13 Last Admin: 10/17/18 21:29 Dose: 50 mg Zolpidem Tartrate (Ambien) 5 mg PO HS PRN PRN Reason: Insomnia Stop: 12/14/18 22:05 Last Admin: 10/20/18 23:24 Dose: 5 mg General: weak, other (Irritable.) HEENT: PERRLA Neck: Supple, No JVD Lungs: CTAB Cardiovascular: Normal S1, Normal S2 Abdomen: soft, non-distended Extremities: other (Hx of left lower extremity tibia and fibula surgery.) Neurological: no change, disorganized Internal Medicine Assmt/Plan - Assessment Assessment: Agitation Irritable Anemia Chronic Viral Hep C PUD GERD Hyponatremia Hypocalcemia Hypomagnesemia History of Seizures - Plan Plan: Continue to monitor patient closely Monitor Labs, Hemoglobin levels Continue present meds as directed Continue taking Ferrous Sulfate daily Monitor diet Fall precaution Seizure precaution Patient to followup with Dr. Montejo for Psych management Continue present care management Nutritional Asmnt/Malnutr-PDOC - Dietary Evaluation Malnutrition Findings (Please click <Entered> for more info): Nutritional Asmnt/Malnutrition Start: 10/18/18 13: 58 Text: Status: Complete Freq: Protocol: Document 10/18/18 13:58 LCHENG (Rec: 10/18/18 14:07 LCHENG ANN [email or web address]) Nutritional Asmnt/Malnutrition Patient General Information Nutritional Screening Moderate Risk Diagnosis Psychosis Pertinent Medical Hx/Surgical Hx PUD/GERD, seizrues, chronic viral hep C, anemia, LLE tib/ fib years ago Subjective Information Pt seen sitting in garfield-chair, confused, not able to participate communication. Per EMR, PO intake 100%. Current Diet Order/ Nutrition Support LORI Pertinent Medications vit C, iton, folate, theragran , protonix, seroquel Pertinent Labs 10/15 Na 134, Cr 0.6, Ca 8.5, Mg 1.8, Alb 3.0 Nutritional Hx/Data Height 1.73 m Height (Calculated Centimeters) 172.7 Current Weight (lbs) 74.843 kg Weight (Calculated Kilograms) 74.8 Weight (Calculated Grams) 30971.7 [place] Body Weight 154 Body Mass Index (BMI) 25.0 Weight Status Overweight GI Symptoms GI Symptoms None Last BM 2/20 Difficult in: None Skin Integrity/Comment: intact Current %PO Good (75-100%) Estimated Nutritional Goals BEE in Kcals: Using Current wt Calories/Kcals/Kg 23-27 Kcals Calculated 0804-9875 Protein: Using Current wt Protein g/k Protein Calculated 75 Fluid: ml 1725-2025ml (1ml/kcal) Nutritional Problem No current Nutrition Prob Problem N/A Malnutrition Alert Is there a minimum of two criteria No selected? Query Text:Check all the applicable criteria. A minimum of two criteria are recommended for diagnosis of either severe or non-severe malnutrition. Malnutrition Related to Morbid Obesity Malnutrition related to morbid obesity No Intervention/Recommendation Comments 1. Continue with LORI diet as ordered. Nurses to assist with meals as needed. 2. Monitor PO intake, wt, labs and skin integrity 3. F/U as low risk in 7 days Expected Outcomes/Goals Expected Outcomes/Goals 1. PO intake to meet at least 75% of nutritional needs. 2. Wt stability, skin to remain intact, labs to approach WNL.
--- NOTE | 2018-10-22 05:19 | Progress Notes ---
DATE: SUBJECTIVE: The patient was seen, chart reviewed, and discussed with staff. The patient continues to be actively psychotic, paranoid, depressed. Appears to be responding to internal stimuli. The patient is seen resting in his room. Generally stays to himself. He has been compliant with medications. Denies any undue side effects. PLAN: The patient continues to be irritable and unpredictable, so he will require an inpatient care for stabilization and treatment. We will monitor the patient on a daily basis for response to medications and titrate medications as needed. JOB# [id number]
[2018-10-22] MEDS: Multivitamin Tab PO SCH (07:59)
[2018-10-22] MEDS: Ferrous Sulfate 325 MG TAB PO SCH (08:00)
[2018-10-22] MEDS: Pantoprazole 40 mg/Packet PO SCH (08:00)
--- NOTE | 2018-10-22 10:46 | Internal Medicine Prog Note ---
Internal Medicine Subjective - Subjective Service Date: 10/22/18 Patient seen and examined:: with staff, chart reviewed Patient is:: awake, verbal, talking, other (pt is anxious,depressed no signs of pain) Patient Complaints of:: other (General weakness.) Per staff patient has:: no adverse event, no episodes of fall Internal Medicine Objective - Results Result Diagrams: 10/15/18 18:35 10/15/18 18:35 Recent Labs: Laboratory Last Values WBC 4.6 Th/cmm (4.8-10.8) L 10/15/18 18:35 RBC 3.42 Mil/cmm (3.80-5.80) L 10/15/18 18:35 Hgb 9.0 gm/dL (12-16) L 10/15/18 18:35 Hct 27.7 % (41.0-60) L 10/15/18 18:35 MCV 81.0 fl (80-99) 10/15/18 18:35 MCH 26.1 pg (27.0-31.0) L 10/15/18 18:35 MCHC Differential 32.3 pg (28.0-36.0) 10/15/18 18:35 RDW 25.8 % (11.5-20.0) H 10/15/18 18:35 Plt Count 216 Th/cmm (150-400) 10/15/18 18:35 MPV 6.9 fl 10/15/18 18:35 Neutrophils % 49.8 % (40.0-80.0) 10/15/18 18:35 Lymphocytes % 35.7 % (20.0-50.0) 10/15/18 18:35 Monocytes % 10.9 % (2.0-10.0) H 10/15/18 18:35 Eosinophils % 2.9 % (0.0-5.0) 10/15/18 18:35 Basophils % 0.7 % (0.0-2.0) 10/15/18 18:35 D-Dimer 480 ng/mL (100-400) H 10/15/18 18:35 Sodium 134 mEq/L (136-145) L 10/15/18 18:35 Potassium 4.2 mEq/L (3.5-5.1) 10/15/18 18:35 Chloride 103 mEq/L (98-107) 10/15/18 18:35 Carbon Dioxide 27.5 mEq/L (21.0-31.0) 10/15/18 18:35 Anion Gap 7.7 (7.0-16.0) 10/15/18 18:35 BUN 11 mg/dL (7-25) 10/15/18 18:35 Creatinine 0.6 mg/dL (0.7-1.3) L 10/15/18 18:35 Est GFR ( Amer) > 60.0 ml/min (>90) 10/15/18 18:35 Est GFR (Non-Af Amer) > 60.0 ml/min 10/15/18 18:35 BUN/Creatinine Ratio 18.3 10/15/18 18:35 Glucose 93 mg/dL (70-105) 10/15/18 18:35 Calcium 8.5 mg/dL (8.6-10.3) L 10/15/18 18:35 Phosphorus 3.5 mg/dL (2.5-5.0) 10/15/18 18:35 Magnesium 1.8 mg/dL (1.9-2.7) L 10/15/18 18:35 Total Bilirubin 0.9 mg/dL (0.3-1.0) 10/15/18 18:35 AST 72 U/L (13-39) H 10/15/18 18:35 ALT 23 U/L (7-52) 10/15/18 18:35 Alkaline Phosphatase 162 U/L (34-104) H 10/15/18 18:35 Total Protein 7.4 gm/dL (6.0-8.3) 10/15/18 18:35 Albumin 3.0 gm/dL (4.2-5.5) L 10/15/18 18:35 Globulin 4.4 gm/dL 10/15/18 18:35 Albumin/Globulin Ratio 0.7 (1.0-1.8) L 10/15/18 18:35 Triglycerides 37 mg/dL (<150) 10/15/18 18:35 Cholesterol 90 mg/dL (<200) 10/15/18 18:35 LDL Cholesterol Direct 43 mg/dL (75-193) L 10/15/18 18:35 HDL Cholesterol 43 mg/dL (23-92) 10/15/18 18:35 Urine Source CLEAN C 10/15/18 18:44 Urine Color STRAW 10/15/18 18:44 Urine Clarity SLIGHT HAZY (CLEAR) 10/15/18 18:44 Urine pH 7.5 (4.6 - 8.0) 10/15/18 18:44 Ur Specific [place] 1.020 (1.005-1.030) 10/15/18 18:44 Urine Protein NEGATIVE mg/dL (NEGATIVE) 10/15/18 18:44 Urine Glucose (UA) NEGATIVE mg/dL (NEGATIVE) 10/15/18 18:44 Urine Ketones NEGATIVE mg/dL (NEGATIVE) 10/15/18 18:44 Urine Blood NEGATIVE (NEGATIVE) 10/15/18 18:44 Urine Nitrate POSITIVE (NEGATIVE) H 10/15/18 18:44 Urine Bilirubin NEGATIVE (NEGATIVE) 10/15/18 18:44 Urine Urobilinogen 1.0 E.U./dL (0.2 - 1.0) 10/15/18 18:44 Ur Leukocyte Esterase NEGATIVE (NEGATIVE) 10/15/18 18:44 Urine RBC NONE SEEN /hpf (0-5) 10/15/18 18:44 Urine WBC 2-5 /hpf (0-5) 10/15/18 18:44 Ur Epithelial Cells RARE /lpf (FEW) 10/15/18 18:44 Urine Bacteria FEW /hpf (NONE SEEN) 10/15/18 18:44 Urine Opiates Screen NEGATIVE (NEGATIVE) 10/15/18 18:44 Urine Methadone Screen NEGATIVE (NEGATIVE) 10/15/18 18:44 Ur Barbiturates Screen NEGATIVE (NEGATIVE) 10/15/18 18:44 Ur Tricyclics Screen NEGATIVE (NEGATIVE) 10/15/18 18:44 Ur Phencyclidine Scrn NEGATIVE (NEGATIVE) 10/15/18 18:44 Amphetamines Screen NEGATIVE (NEGATIVE) 10/15/18 18:44 U Methamphetamines Scrn NEGATIVE (NEGATIVE) 10/15/18 18:44 U Benzodiazepines Scrn NEGATIVE (NEGATIVE) 10/15/18 18:44 U Cocaine Metab Screen NEGATIVE (NEGATIVE) 10/15/18 18:44 U Cannabinoids Screen NEGATIVE (NEGATIVE) 10/15/18 18:44 - Physical Exam Vitals and I&O: Vital Signs Temp 98.7 F 10/22/18 05:33 Pulse 76 10/22/18 08:00 Resp 19 10/22/18 05:33 BP 131/74 10/22/18 08:00 Pulse Ox 96 10/22/18 05:33 Intake & Output 10/21/18 10/22/18 10/22/18 18:59 06:59 18:59 Intake Total 300 Balance 300 Intake: Oral 300 Other: # Voids 1 # Bowel Movements 0 Active Medications: Current Medications Acetaminophen (Tylenol) 650 mg PO Q4HR PRN PRN Reason: Mild Pain / Temp above 100 Stop: 12/14/18 22:12 Last Admin: 10/21/18 03:58 Dose: 650 mg Acetaminophen (Tylenol) 325 mg PO DAILY [facility] Stop: 12/17/18 08:59 Last Admin: 10/22/18 07:59 Dose: 325 mg Al Hydrox/Mg Hydrox/Simethicone (Maalox) 30 ml PO Q4HR PRN PRN Reason: GI DISTRESS Stop: 12/14/18 22:05 Ascorbic Acid (Vitamin C) 500 mg PO DAILY [facility] Stop: 12/15/18 08:59 Last Admin: 10/22/18 08:00 Dose: 500 mg Ferrous Sulfate (Iron) 325 mg PO DAILY [facility] Stop: 12/15/18 08:59 Last Admin: 10/22/18 08:00 Dose: 325 mg Folic Acid (Folate) 1 mg PO DAILY [facility] Stop: 12/15/18 08:59 Last Admin: 10/22/18 08:00 Dose: 1 mg Lorazepam (Ativan) 0.5 mg PO Q4HR PRN; Protocol PRN Reason: Agitation Stop: 11/14/18 22:05 Last Admin: 10/21/18 20:58 Dose: 0.5 mg Metoprolol Tartrate (Lopressor) 50 mg PO BID [facility] Stop: 12/15/18 08:59 Last Admin: 10/22/18 08:00 Dose: 50 mg Multivitamins/Vitamin C (Theragran) 1 tab PO DAILY [facility] Stop: 12/17/18 08:59 Last Admin: 10/22/18 07:59 Dose: 1 tab Pantoprazole Sodium (Protonix) 40 mg PO DAILY [facility] Stop: 12/15/18 08:59 Last Admin: 10/22/18 08:00 Dose: 40 mg Quetiapine Fumarate (Seroquel) 25 mg PO BID [facility]; Protocol Stop: 12/15/18 08:59 Last Admin: 10/22/18 08:00 Dose: 25 mg Tramadol HCl (Ultram) 50 mg PO Q8H PRN PRN Reason: Pain (Severe) Stop: 12/14/18 22:13 Last Admin: 10/17/18 21:29 Dose: 50 mg Zolpidem Tartrate (Ambien) 5 mg PO HS PRN PRN Reason: Insomnia Stop: 12/14/18 22:05 Last Admin: 10/21/18 23:17 Dose: 5 mg General: weak, other (Irritable and Agitated.) HEENT: PERRLA Neck: Supple, No JVD Lungs: CTAB Cardiovascular: Normal S1, Normal S2 Abdomen: soft, non-distended Extremities: other (Hx of left lower extremity tibia and fibula surgery.) Neurological: no change, disorganized Internal Medicine Assmt/Plan - Assessment Assessment: Weak Agitation Irritable Actively Psychotic Anemia Chronic Viral Hep C PUD GERD Hyponatremia Hypocalcemia Hypomagnesemia History of Seizures - Plan Plan: Continue to monitor patient closely Monitor Labs, Hemoglobin levels Continue present meds as directed Continue taking Ferrous Sulfate daily Monitor diet Fall precaution Seizure precaution Patient to followup with Dr. Montejo for Psych management Continue present care management Nutritional Asmnt/Malnutr-PDOC - Dietary Evaluation Malnutrition Findings (Please click <Entered> for more info): Nutritional Asmnt/Malnutrition Start: 10/18/18 13: 58 Text: Status: Complete Freq: Protocol: Document 10/18/18 13:58 LCHENG (Rec: 10/18/18 14:07 LCDORONG ANN [email or web address]) Nutritional Asmnt/Malnutrition Patient General Information Nutritional Screening Moderate Risk Diagnosis Psychosis Pertinent Medical Hx/Surgical Hx PUD/GERD, seizrues, chronic viral hep C, anemia, LLE tib/ fib years ago Subjective Information Pt seen sitting in garfield-chair, confused, not able to participate communication. Per EMR, PO intake 100%. Current Diet Order/ Nutrition Support LORI Pertinent Medications vit C, iton, folate, theragran , protonix, seroquel Pertinent Labs 10/15 Na 134, Cr 0.6, Ca 8.5, Mg 1.8, Alb 3.0 Nutritional Hx/Data Height 1.73 m Height (Calculated Centimeters) 172.7 Current Weight (lbs) 74.843 kg Weight (Calculated Kilograms) 74.8 Weight (Calculated Grams) 80710.7 [place] Body Weight 154 Body Mass Index (BMI) 25.0 Weight Status Overweight GI Symptoms GI Symptoms None Last BM 2/20 Difficult in: None Skin Integrity/Comment: intact Current %PO Good (75-100%) Estimated Nutritional Goals BEE in Kcals: Using Current wt Calories/Kcals/Kg 23-27 Kcals Calculated 1557-7522 Protein: Using Current wt Protein g/k Protein Calculated 75 Fluid: ml 1725-2025ml (1ml/kcal) Nutritional Problem No current Nutrition Prob Problem N/A Malnutrition Alert Is there a minimum of two criteria No selected? Query Text:Check all the applicable criteria. A minimum of two criteria are recommended for diagnosis of either severe or non-severe malnutrition. Malnutrition Related to Morbid Obesity Malnutrition related to morbid obesity No Intervention/Recommendation Comments 1. Continue with LORI diet as ordered. Nurses to assist with meals as needed. 2. Monitor PO intake, wt, labs and skin integrity 3. F/U as low risk in 7 days Expected Outcomes/Goals Expected Outcomes/Goals 1. PO intake to meet at least 75% of nutritional needs. 2. Wt stability, skin to remain intact, labs to approach WNL.
--- NOTE | 2018-10-23 00:46 | Progress Notes ---
DATE: 10/22/2018 Case was discussed with staff of the patient, reviewed records. This is a 63-year-old male who was admitted on 10/15/2018 because of his disability, confusion. Unable to follow the staff thrive redirection, easily agitated. He continues to be confused, unable to participate in meaningful conversation or make safe plan for self-care. Continues to be unpredictable, impulsive, needing redirection. He is on Seroquel 25 mg twice a day and no sedation, no nausea, no extrapyramidal symptoms. We will continue the patient in group therapy, milieu therapy, and adjust the medication as needed. JOB# [id number]
[2018-10-23] MEDS: Pantoprazole 40 mg/Packet PO SCH (08:09)
[2018-10-23] MEDS: Multivitamin Tab PO SCH (08:09)
[2018-10-23] MEDS: Ferrous Sulfate 325 MG TAB PO SCH (08:10)
--- NOTE | 2018-10-23 20:12 | Progress Notes ---
DATE: 10/23/2018 SUBJECTIVE: Case was discussed with staff of the patient, reviewed records. The patient continues to be easily agitated, continues to be confused, unable to participate in meaningful conversation, unpredictable, and impulsive. He continues to have poor insight. He is compliant with the medication with no side effects, no sedation, nausea, and no extrapyramidal symptoms. We will continue to work with the patient in group therapy, milieu therapy, and adjust the medications as needed. JOB# [id number]
--- NOTE | 2018-10-23 21:20 | Internal Medicine Prog Note ---
Internal Medicine Subjective - Subjective Service Date: 10/23/18 Patient is:: awake, verbal, talking, other (pt is anxious,depressed no signs of pain) Patient Complaints of:: other (General weakness.) Per staff patient has:: no adverse event, no episodes of fall Internal Medicine Objective - Results Result Diagrams: 10/15/18 18:35 10/15/18 18:35 Recent Labs: Laboratory Last Values WBC 4.6 Th/cmm (4.8-10.8) L 10/15/18 18:35 RBC 3.42 Mil/cmm (3.80-5.80) L 10/15/18 18:35 Hgb 9.0 gm/dL (12-16) L 10/15/18 18:35 Hct 27.7 % (41.0-60) L 10/15/18 18:35 MCV 81.0 fl (80-99) 10/15/18 18:35 MCH 26.1 pg (27.0-31.0) L 10/15/18 18:35 MCHC Differential 32.3 pg (28.0-36.0) 10/15/18 18:35 RDW 25.8 % (11.5-20.0) H 10/15/18 18:35 Plt Count 216 Th/cmm (150-400) 10/15/18 18:35 MPV 6.9 fl 10/15/18 18:35 Neutrophils % 49.8 % (40.0-80.0) 10/15/18 18:35 Lymphocytes % 35.7 % (20.0-50.0) 10/15/18 18:35 Monocytes % 10.9 % (2.0-10.0) H 10/15/18 18:35 Eosinophils % 2.9 % (0.0-5.0) 10/15/18 18:35 Basophils % 0.7 % (0.0-2.0) 10/15/18 18:35 D-Dimer 480 ng/mL (100-400) H 10/15/18 18:35 Sodium 134 mEq/L (136-145) L 10/15/18 18:35 Potassium 4.2 mEq/L (3.5-5.1) 10/15/18 18:35 Chloride 103 mEq/L (98-107) 10/15/18 18:35 Carbon Dioxide 27.5 mEq/L (21.0-31.0) 10/15/18 18:35 Anion Gap 7.7 (7.0-16.0) 10/15/18 18:35 BUN 11 mg/dL (7-25) 10/15/18 18:35 Creatinine 0.6 mg/dL (0.7-1.3) L 10/15/18 18:35 Est GFR ( Amer) > 60.0 ml/min (>90) 10/15/18 18:35 Est GFR (Non-Af Amer) > 60.0 ml/min 10/15/18 18:35 BUN/Creatinine Ratio 18.3 10/15/18 18:35 Glucose 93 mg/dL (70-105) 10/15/18 18:35 Calcium 8.5 mg/dL (8.6-10.3) L 10/15/18 18:35 Phosphorus 3.5 mg/dL (2.5-5.0) 10/15/18 18:35 Magnesium 1.8 mg/dL (1.9-2.7) L 10/15/18 18:35 Total Bilirubin 0.9 mg/dL (0.3-1.0) 10/15/18 18:35 AST 72 U/L (13-39) H 10/15/18 18:35 ALT 23 U/L (7-52) 10/15/18 18:35 Alkaline Phosphatase 162 U/L (34-104) H 10/15/18 18:35 Total Protein 7.4 gm/dL (6.0-8.3) 10/15/18 18:35 Albumin 3.0 gm/dL (4.2-5.5) L 10/15/18 18:35 Globulin 4.4 gm/dL 10/15/18 18:35 Albumin/Globulin Ratio 0.7 (1.0-1.8) L 10/15/18 18:35 Triglycerides 37 mg/dL (<150) 10/15/18 18:35 Cholesterol 90 mg/dL (<200) 10/15/18 18:35 LDL Cholesterol Direct 43 mg/dL (75-193) L 10/15/18 18:35 HDL Cholesterol 43 mg/dL (23-92) 10/15/18 18:35 Urine Source CLEAN C 10/15/18 18:44 Urine Color STRAW 10/15/18 18:44 Urine Clarity SLIGHT HAZY (CLEAR) 10/15/18 18:44 Urine pH 7.5 (4.6 - 8.0) 10/15/18 18:44 Ur Specific [place] 1.020 (1.005-1.030) 10/15/18 18:44 Urine Protein NEGATIVE mg/dL (NEGATIVE) 10/15/18 18:44 Urine Glucose (UA) NEGATIVE mg/dL (NEGATIVE) 10/15/18 18:44 Urine Ketones NEGATIVE mg/dL (NEGATIVE) 10/15/18 18:44 Urine Blood NEGATIVE (NEGATIVE) 10/15/18 18:44 Urine Nitrate POSITIVE (NEGATIVE) H 10/15/18 18:44 Urine Bilirubin NEGATIVE (NEGATIVE) 10/15/18 18:44 Urine Urobilinogen 1.0 E.U./dL (0.2 - 1.0) 10/15/18 18:44 Ur Leukocyte Esterase NEGATIVE (NEGATIVE) 10/15/18 18:44 Urine RBC NONE SEEN /hpf (0-5) 10/15/18 18:44 Urine WBC 2-5 /hpf (0-5) 10/15/18 18:44 Ur Epithelial Cells RARE /lpf (FEW) 10/15/18 18:44 Urine Bacteria FEW /hpf (NONE SEEN) 10/15/18 18:44 Urine Opiates Screen NEGATIVE (NEGATIVE) 10/15/18 18:44 Urine Methadone Screen NEGATIVE (NEGATIVE) 10/15/18 18:44 Ur Barbiturates Screen NEGATIVE (NEGATIVE) 10/15/18 18:44 Ur Tricyclics Screen NEGATIVE (NEGATIVE) 10/15/18 18:44 Ur Phencyclidine Scrn NEGATIVE (NEGATIVE) 10/15/18 18:44 Amphetamines Screen NEGATIVE (NEGATIVE) 10/15/18 18:44 U Methamphetamines Scrn NEGATIVE (NEGATIVE) 10/15/18 18:44 U Benzodiazepines Scrn NEGATIVE (NEGATIVE) 10/15/18 18:44 U Cocaine Metab Screen NEGATIVE (NEGATIVE) 10/15/18 18:44 U Cannabinoids Screen NEGATIVE (NEGATIVE) 10/15/18 18:44 - Physical Exam Vitals and I&O: Vital Signs Temp 98.0 F 10/23/18 20:27 Pulse 65 10/23/18 20:27 Resp 20 10/23/18 20:27 BP 118/64 10/23/18 20:27 Pulse Ox 97 10/23/18 20:27 Intake & Output 10/23/18 10/23/18 10/24/18 06:59 18:59 06:59 Intake Total 160 Balance 160 Intake: Oral 160 Other: # Voids 1 # Bowel Movements 1 Active Medications: Current Medications Acetaminophen (Tylenol) 650 mg PO Q4HR PRN PRN Reason: Mild Pain / Temp above 100 Stop: 12/14/18 22:12 Last Admin: 10/23/18 14:56 Dose: 650 mg Acetaminophen (Tylenol) 325 mg PO DAILY [facility] Stop: 12/17/18 08:59 Last Admin: 10/23/18 08:09 Dose: 325 mg Al Hydrox/Mg Hydrox/Simethicone (Maalox) 30 ml PO Q4HR PRN PRN Reason: GI DISTRESS Stop: 12/14/18 22:05 Ascorbic Acid (Vitamin C) 500 mg PO DAILY [facility] Stop: 12/15/18 08:59 Last Admin: 10/23/18 08:10 Dose: 500 mg Ferrous Sulfate (Iron) 325 mg PO DAILY [facility] Stop: 12/15/18 08:59 Last Admin: 10/23/18 08:10 Dose: 325 mg Folic Acid (Folate) 1 mg PO DAILY [facility] Stop: 12/15/18 08:59 Last Admin: 10/23/18 08:10 Dose: 1 mg Lorazepam (Ativan) 0.5 mg PO Q4HR PRN; Protocol PRN Reason: Agitation Stop: 11/14/18 22:05 Last Admin: 10/23/18 03:25 Dose: 0.5 mg Metoprolol Tartrate (Lopressor) 50 mg PO BID [facility] Stop: 12/15/18 08:59 Last Admin: 10/23/18 17:01 Dose: 50 mg Multivitamins/Vitamin C (Theragran) 1 tab PO DAILY [facility] Stop: 12/17/18 08:59 Last Admin: 10/23/18 08:09 Dose: 1 tab Pantoprazole Sodium (Protonix) 40 mg PO DAILY [facility] Stop: 12/15/18 08:59 Last Admin: 10/23/18 08:09 Dose: 40 mg Quetiapine Fumarate (Seroquel) 25 mg PO BID [facility]; Protocol Stop: 12/15/18 08:59 Last Admin: 10/23/18 17:02 Dose: 25 mg Tramadol HCl (Ultram) 50 mg PO Q8H PRN PRN Reason: Pain (Severe) Stop: 12/14/18 22:13 Last Admin: 10/22/18 19:31 Dose: 50 mg Zolpidem Tartrate (Ambien) 5 mg PO HS PRN PRN Reason: Insomnia Stop: 12/14/18 22:05 Last Admin: 10/21/18 23:17 Dose: 5 mg General: weak, other (Irritable and Agitated.) HEENT: PERRLA Neck: Supple, No JVD Lungs: CTAB Cardiovascular: Normal S1, Normal S2 Abdomen: soft, non-distended Extremities: other (Hx of left lower extremity tibia and fibula surgery.) Neurological: no change, disorganized Internal Medicine Assmt/Plan - Assessment Assessment: Weak Agitation Irritable Actively Psychotic Anemia Chronic Viral Hep C PUD GERD Hyponatremia Hypocalcemia Hypomagnesemia History of Seizures - Plan Plan: Continue to monitor patient closely Monitor Labs, Hemoglobin levels Continue present meds as directed Continue taking Ferrous Sulfate daily Monitor diet Fall precaution Seizure precaution Patient to followup with Dr. Montejo for Psych management Continue present care management Nutritional Asmnt/Malnutr-PDOC - Dietary Evaluation Malnutrition Findings (Please click <Entered> for more info): Nutritional Asmnt/Malnutrition Start: 10/18/18 13: 58 Text: Status: Complete Freq: Protocol: Document 10/18/18 13:58 LCHENG (Rec: 10/18/18 14:07 LCHENG ANN [email or web address]) Nutritional Asmnt/Malnutrition Patient General Information Nutritional Screening Moderate Risk Diagnosis Psychosis Pertinent Medical Hx/Surgical Hx PUD/GERD, seizrues, chronic viral hep C, anemia, LLE tib/ fib years ago Subjective Information Pt seen sitting in garfield-chair, confused, not able to participate communication. Per EMR, PO intake 100%. Current Diet Order/ Nutrition Support LORI Pertinent Medications vit C, iton, folate, theragran , protonix, seroquel Pertinent Labs 10/15 Na 134, Cr 0.6, Ca 8.5, Mg 1.8, Alb 3.0 Nutritional Hx/Data Height 1.73 m Height (Calculated Centimeters) 172.7 Current Weight (lbs) 74.843 kg Weight (Calculated Kilograms) 74.8 Weight (Calculated Grams) 27579.7 [place] Body Weight 154 Body Mass Index (BMI) 25.0 Weight Status Overweight GI Symptoms GI Symptoms None Last BM 2/20 Difficult in: None Skin Integrity/Comment: intact Current %PO Good (75-100%) Estimated Nutritional Goals BEE in Kcals: Using Current wt Calories/Kcals/Kg 23-27 Kcals Calculated 4469-7325 Protein: Using Current wt Protein g/k Protein Calculated 75 Fluid: ml 1725-2025ml (1ml/kcal) Nutritional Problem No current Nutrition Prob Problem N/A Malnutrition Alert Is there a minimum of two criteria No selected? Query Text:Check all the applicable criteria. A minimum of two criteria are recommended for diagnosis of either severe or non-severe malnutrition. Malnutrition Related to Morbid Obesity Malnutrition related to morbid obesity No Intervention/Recommendation Comments 1. Continue with LORI diet as ordered. Nurses to assist with meals as needed. 2. Monitor PO intake, wt, labs and skin integrity 3. F/U as low risk in 7 days Expected Outcomes/Goals Expected Outcomes/Goals 1. PO intake to meet at least 75% of nutritional needs. 2. Wt stability, skin to remain intact, labs to approach WNL.
[2018-10-24] MEDS: Ferrous Sulfate 325 MG TAB PO SCH (09:05)
[2018-10-24] MEDS: Multivitamin Tab PO SCH (09:05)
[2018-10-24] MEDS: Pantoprazole 40 mg/Packet PO SCH (09:05)
--- NOTE | 2018-10-24 13:36 | Internal Medicine Prog Note ---
Internal Medicine Subjective - Subjective Service Date: 10/24/18 Patient seen and examined:: with staff, chart reviewed Patient is:: awake, verbal, talking, agitated, confused, other (pt is anxious, depressed no signs of pain) Patient Complaints of:: other (General weakness.) Per staff patient has:: no adverse event, no episodes of fall, agitated, confused Internal Medicine Objective - Results Result Diagrams: 10/15/18 18:35 10/15/18 18:35 Recent Labs: Laboratory Last Values WBC 4.6 Th/cmm (4.8-10.8) L 10/15/18 18:35 RBC 3.42 Mil/cmm (3.80-5.80) L 10/15/18 18:35 Hgb 9.0 gm/dL (12-16) L 10/15/18 18:35 Hct 27.7 % (41.0-60) L 10/15/18 18:35 MCV 81.0 fl (80-99) 10/15/18 18:35 MCH 26.1 pg (27.0-31.0) L 10/15/18 18:35 MCHC Differential 32.3 pg (28.0-36.0) 10/15/18 18:35 RDW 25.8 % (11.5-20.0) H 10/15/18 18:35 Plt Count 216 Th/cmm (150-400) 10/15/18 18:35 MPV 6.9 fl 10/15/18 18:35 Neutrophils % 49.8 % (40.0-80.0) 10/15/18 18:35 Lymphocytes % 35.7 % (20.0-50.0) 10/15/18 18:35 Monocytes % 10.9 % (2.0-10.0) H 10/15/18 18:35 Eosinophils % 2.9 % (0.0-5.0) 10/15/18 18:35 Basophils % 0.7 % (0.0-2.0) 10/15/18 18:35 D-Dimer 480 ng/mL (100-400) H 10/15/18 18:35 Sodium 134 mEq/L (136-145) L 10/15/18 18:35 Potassium 4.2 mEq/L (3.5-5.1) 10/15/18 18:35 Chloride 103 mEq/L (98-107) 10/15/18 18:35 Carbon Dioxide 27.5 mEq/L (21.0-31.0) 10/15/18 18:35 Anion Gap 7.7 (7.0-16.0) 10/15/18 18:35 BUN 11 mg/dL (7-25) 10/15/18 18:35 Creatinine 0.6 mg/dL (0.7-1.3) L 10/15/18 18:35 Est GFR ( Amer) > 60.0 ml/min (>90) 10/15/18 18:35 Est GFR (Non-Af Amer) > 60.0 ml/min 10/15/18 18:35 BUN/Creatinine Ratio 18.3 10/15/18 18:35 Glucose 93 mg/dL (70-105) 10/15/18 18:35 Calcium 8.5 mg/dL (8.6-10.3) L 10/15/18 18:35 Phosphorus 3.5 mg/dL (2.5-5.0) 10/15/18 18:35 Magnesium 1.8 mg/dL (1.9-2.7) L 10/15/18 18:35 Total Bilirubin 0.9 mg/dL (0.3-1.0) 10/15/18 18:35 AST 72 U/L (13-39) H 10/15/18 18:35 ALT 23 U/L (7-52) 10/15/18 18:35 Alkaline Phosphatase 162 U/L (34-104) H 10/15/18 18:35 Total Protein 7.4 gm/dL (6.0-8.3) 10/15/18 18:35 Albumin 3.0 gm/dL (4.2-5.5) L 10/15/18 18:35 Globulin 4.4 gm/dL 10/15/18 18:35 Albumin/Globulin Ratio 0.7 (1.0-1.8) L 10/15/18 18:35 Triglycerides 37 mg/dL (<150) 10/15/18 18:35 Cholesterol 90 mg/dL (<200) 10/15/18 18:35 LDL Cholesterol Direct 43 mg/dL (75-193) L 10/15/18 18:35 HDL Cholesterol 43 mg/dL (23-92) 10/15/18 18:35 Urine Source CLEAN C 10/15/18 18:44 Urine Color STRAW 10/15/18 18:44 Urine Clarity SLIGHT HAZY (CLEAR) 10/15/18 18:44 Urine pH 7.5 (4.6 - 8.0) 10/15/18 18:44 Ur Specific [place] 1.020 (1.005-1.030) 10/15/18 18:44 Urine Protein NEGATIVE mg/dL (NEGATIVE) 10/15/18 18:44 Urine Glucose (UA) NEGATIVE mg/dL (NEGATIVE) 10/15/18 18:44 Urine Ketones NEGATIVE mg/dL (NEGATIVE) 10/15/18 18:44 Urine Blood NEGATIVE (NEGATIVE) 10/15/18 18:44 Urine Nitrate POSITIVE (NEGATIVE) H 10/15/18 18:44 Urine Bilirubin NEGATIVE (NEGATIVE) 10/15/18 18:44 Urine Urobilinogen 1.0 E.U./dL (0.2 - 1.0) 10/15/18 18:44 Ur Leukocyte Esterase NEGATIVE (NEGATIVE) 10/15/18 18:44 Urine RBC NONE SEEN /hpf (0-5) 10/15/18 18:44 Urine WBC 2-5 /hpf (0-5) 10/15/18 18:44 Ur Epithelial Cells RARE /lpf (FEW) 10/15/18 18:44 Urine Bacteria FEW /hpf (NONE SEEN) 10/15/18 18:44 Urine Opiates Screen NEGATIVE (NEGATIVE) 10/15/18 18:44 Urine Methadone Screen NEGATIVE (NEGATIVE) 10/15/18 18:44 Ur Barbiturates Screen NEGATIVE (NEGATIVE) 10/15/18 18:44 Ur Tricyclics Screen NEGATIVE (NEGATIVE) 10/15/18 18:44 Ur Phencyclidine Scrn NEGATIVE (NEGATIVE) 10/15/18 18:44 Amphetamines Screen NEGATIVE (NEGATIVE) 10/15/18 18:44 U Methamphetamines Scrn NEGATIVE (NEGATIVE) 10/15/18 18:44 U Benzodiazepines Scrn NEGATIVE (NEGATIVE) 10/15/18 18:44 U Cocaine Metab Screen NEGATIVE (NEGATIVE) 10/15/18 18:44 U Cannabinoids Screen NEGATIVE (NEGATIVE) 10/15/18 18:44 - Physical Exam Vitals and I&O: Vital Signs Temp 98.7 F 10/24/18 06:17 Pulse 58 10/24/18 09:05 Resp 20 10/24/18 06:17 BP 125/75 10/24/18 09:05 Pulse Ox 98 10/24/18 06:17 Intake & Output 10/23/18 10/24/18 10/24/18 18:59 06:59 18:59 Intake Total 160 Balance 160 Intake: Oral 160 Other: # Voids 3 # Bowel Movements 0 Active Medications: Current Medications Acetaminophen (Tylenol) 650 mg PO Q4HR PRN PRN Reason: Mild Pain / Temp above 100 Stop: 12/14/18 22:12 Last Admin: 10/23/18 14:56 Dose: 650 mg Acetaminophen (Tylenol) 325 mg PO DAILY [facility] Stop: 12/17/18 08:59 Last Admin: 10/24/18 09:05 Dose: 325 mg Al Hydrox/Mg Hydrox/Simethicone (Maalox) 30 ml PO Q4HR PRN PRN Reason: GI DISTRESS Stop: 12/14/18 22:05 Ascorbic Acid (Vitamin C) 500 mg PO DAILY [facility] Stop: 12/15/18 08:59 Last Admin: 10/24/18 09:05 Dose: 500 mg Ferrous Sulfate (Iron) 325 mg PO DAILY [facility] Stop: 12/15/18 08:59 Last Admin: 10/24/18 09:05 Dose: 325 mg Folic Acid (Folate) 1 mg PO DAILY [facility] Stop: 12/15/18 08:59 Last Admin: 10/24/18 09:06 Dose: 1 mg Lorazepam (Ativan) 0.5 mg PO Q4HR PRN; Protocol PRN Reason: Agitation Stop: 11/14/18 22:05 Last Admin: 10/24/18 03:44 Dose: 0.5 mg Metoprolol Tartrate (Lopressor) 50 mg PO BID [facility] Stop: 12/15/18 08:59 Last Admin: 10/24/18 09:05 Dose: 50 mg Multivitamins/Vitamin C (Theragran) 1 tab PO DAILY [facility] Stop: 12/17/18 08:59 Last Admin: 10/24/18 09:05 Dose: 1 tab Pantoprazole Sodium (Protonix) 40 mg PO DAILY [facility] Stop: 12/15/18 08:59 Last Admin: 10/24/18 09:05 Dose: 40 mg Quetiapine Fumarate (Seroquel) 25 mg PO BID [facility]; Protocol Stop: 12/15/18 08:59 Last Admin: 10/24/18 09:05 Dose: 25 mg Tramadol HCl (Ultram) 50 mg PO Q8H PRN PRN Reason: Pain (Severe) Stop: 12/14/18 22:13 Last Admin: 10/23/18 22:22 Dose: 50 mg Zolpidem Tartrate (Ambien) 5 mg PO HS PRN PRN Reason: Insomnia Stop: 12/14/18 22:05 Last Admin: 10/23/18 22:23 Dose: 5 mg General: weak, other (Irritable and Agitated.) HEENT: PERRLA Neck: Supple, No JVD Lungs: CTAB Cardiovascular: Normal S1, Normal S2 Abdomen: soft, non-distended Extremities: other (Hx of left lower extremity tibia and fibula surgery.) Neurological: no change, disorganized Internal Medicine Assmt/Plan - Assessment Assessment: Weak Agitation Irritable Actively Psychotic Anemia Chronic Viral Hep C PUD GERD Hyponatremia Hypocalcemia Hypomagnesemia History of Seizures - Plan Plan: Continue to monitor patient closely Monitor Labs, Hemoglobin levels Continue present meds as directed Continue taking Ferrous Sulfate daily Monitor diet Fall precaution Seizure precaution Patient to followup with Dr. Montejo for Psych management Continue present care management Nutritional Asmnt/Malnutr-PDOC - Dietary Evaluation Malnutrition Findings (Please click <Entered> for more info): Nutritional Asmnt/Malnutrition Start: 10/18/18 13: 58 Text: Status: Complete Freq: Protocol: Document 10/18/18 13:58 LCHENG (Rec: 10/18/18 14:07 LCDORONG ANN [email or web address]) Nutritional Asmnt/Malnutrition Patient General Information Nutritional Screening Moderate Risk Diagnosis Psychosis Pertinent Medical Hx/Surgical Hx PUD/GERD, seizrues, chronic viral hep C, anemia, LLE tib/ fib years ago Subjective Information Pt seen sitting in [place]-chair, confused, not able to participate communication. Per EMR, PO intake 100%. Current Diet Order/ Nutrition Support LORI Pertinent Medications vit C, iton, folate, theragran , protonix, seroquel Pertinent Labs 10/15 Na 134, Cr 0.6, Ca 8.5, Mg 1.8, Alb 3.0 Nutritional Hx/Data Height 1.73 m Height (Calculated Centimeters) 172.7 Current Weight (lbs) 74.843 kg Weight (Calculated Kilograms) 74.8 Weight (Calculated Grams) 87556.7 [place] Body Weight 154 Body Mass Index (BMI) 25.0 Weight Status Overweight GI Symptoms GI Symptoms None Last BM 2/20 Difficult in: None Skin Integrity/Comment: intact Current %PO Good (75-100%) Estimated Nutritional Goals BEE in Kcals: Using Current wt Calories/Kcals/Kg 23-27 Kcals Calculated 8994-5873 Protein: Using Current wt Protein g/k Protein Calculated 75 Fluid: ml 1725-2024ml (1ml/kcal) Nutritional Problem No current Nutrition Prob Problem N/A Malnutrition Alert Is there a minimum of two criteria No selected? Query Text:Check all the applicable criteria. A minimum of two criteria are recommended for diagnosis of either severe or non-severe malnutrition. Malnutrition Related to Morbid Obesity Malnutrition related to morbid obesity No Intervention/Recommendation Comments 1. Continue with LORI diet as ordered. Nurses to assist with meals as needed. 2. Monitor PO intake, wt, labs and skin integrity 3. F/U as low risk in 7 days Expected Outcomes/Goals Expected Outcomes/Goals 1. PO intake to meet at least 75% of nutritional needs. 2. Wt stability, skin to remain intact, labs to approach WNL.
[2018-10-25] MEDS: Multivitamin Tab PO SCH (09:00)
[2018-10-25] MEDS: Ferrous Sulfate 325 MG TAB PO SCH (09:00)
[2018-10-25] MEDS: Pantoprazole 40 mg/Packet PO SCH (10:09)
--- NOTE | 2018-10-25 17:59 | Internal Medicine Prog Note ---
Internal Medicine Subjective - Subjective Service Date: 10/25/18 Patient is:: awake, verbal, talking, agitated, confused, other (pt is anxious, depressed no signs of pain) Patient Complaints of:: other (General weakness.) Per staff patient has:: no adverse event, no episodes of fall, agitated, confused Internal Medicine Objective - Results Result Diagrams: 10/15/18 18:35 10/15/18 18:35 Recent Labs: Laboratory Last Values WBC 4.6 Th/cmm (4.8-10.8) L 10/15/18 18:35 RBC 3.42 Mil/cmm (3.80-5.80) L 10/15/18 18:35 Hgb 9.0 gm/dL (12-16) L 10/15/18 18:35 Hct 27.7 % (41.0-60) L 10/15/18 18:35 MCV 81.0 fl (80-99) 10/15/18 18:35 MCH 26.1 pg (27.0-31.0) L 10/15/18 18:35 MCHC Differential 32.3 pg (28.0-36.0) 10/15/18 18:35 RDW 25.8 % (11.5-20.0) H 10/15/18 18:35 Plt Count 216 Th/cmm (150-400) 10/15/18 18:35 MPV 6.9 fl 10/15/18 18:35 Neutrophils % 49.8 % (40.0-80.0) 10/15/18 18:35 Lymphocytes % 35.7 % (20.0-50.0) 10/15/18 18:35 Monocytes % 10.9 % (2.0-10.0) H 10/15/18 18:35 Eosinophils % 2.9 % (0.0-5.0) 10/15/18 18:35 Basophils % 0.7 % (0.0-2.0) 10/15/18 18:35 D-Dimer 480 ng/mL (100-400) H 10/15/18 18:35 Sodium 134 mEq/L (136-145) L 10/15/18 18:35 Potassium 4.2 mEq/L (3.5-5.1) 10/15/18 18:35 Chloride 103 mEq/L (98-107) 10/15/18 18:35 Carbon Dioxide 27.5 mEq/L (21.0-31.0) 10/15/18 18:35 Anion Gap 7.7 (7.0-16.0) 10/15/18 18:35 BUN 11 mg/dL (7-25) 10/15/18 18:35 Creatinine 0.6 mg/dL (0.7-1.3) L 10/15/18 18:35 Est GFR ( Amer) > 60.0 ml/min (>90) 10/15/18 18:35 Est GFR (Non-Af Amer) > 60.0 ml/min 10/15/18 18:35 BUN/Creatinine Ratio 18.3 10/15/18 18:35 Glucose 93 mg/dL (70-105) 10/15/18 18:35 Calcium 8.5 mg/dL (8.6-10.3) L 10/15/18 18:35 Phosphorus 3.5 mg/dL (2.5-5.0) 10/15/18 18:35 Magnesium 1.8 mg/dL (1.9-2.7) L 10/15/18 18:35 Total Bilirubin 0.9 mg/dL (0.3-1.0) 10/15/18 18:35 AST 72 U/L (13-39) H 10/15/18 18:35 ALT 23 U/L (7-52) 10/15/18 18:35 Alkaline Phosphatase 162 U/L (34-104) H 10/15/18 18:35 Total Protein 7.4 gm/dL (6.0-8.3) 10/15/18 18:35 Albumin 3.0 gm/dL (4.2-5.5) L 10/15/18 18:35 Globulin 4.4 gm/dL 10/15/18 18:35 Albumin/Globulin Ratio 0.7 (1.0-1.8) L 10/15/18 18:35 Triglycerides 37 mg/dL (<150) 10/15/18 18:35 Cholesterol 90 mg/dL (<200) 10/15/18 18:35 LDL Cholesterol Direct 43 mg/dL (75-193) L 10/15/18 18:35 HDL Cholesterol 43 mg/dL (23-92) 10/15/18 18:35 Urine Source CLEAN C 10/15/18 18:44 Urine Color STRAW 10/15/18 18:44 Urine Clarity SLIGHT HAZY (CLEAR) 10/15/18 18:44 Urine pH 7.5 (4.6 - 8.0) 10/15/18 18:44 Ur Specific [place] 1.020 (1.005-1.030) 10/15/18 18:44 Urine Protein NEGATIVE mg/dL (NEGATIVE) 10/15/18 18:44 Urine Glucose (UA) NEGATIVE mg/dL (NEGATIVE) 10/15/18 18:44 Urine Ketones NEGATIVE mg/dL (NEGATIVE) 10/15/18 18:44 Urine Blood NEGATIVE (NEGATIVE) 10/15/18 18:44 Urine Nitrate POSITIVE (NEGATIVE) H 10/15/18 18:44 Urine Bilirubin NEGATIVE (NEGATIVE) 10/15/18 18:44 Urine Urobilinogen 1.0 E.U./dL (0.2 - 1.0) 10/15/18 18:44 Ur Leukocyte Esterase NEGATIVE (NEGATIVE) 10/15/18 18:44 Urine RBC NONE SEEN /hpf (0-5) 10/15/18 18:44 Urine WBC 2-5 /hpf (0-5) 10/15/18 18:44 Ur Epithelial Cells RARE /lpf (FEW) 10/15/18 18:44 Urine Bacteria FEW /hpf (NONE SEEN) 10/15/18 18:44 Urine Opiates Screen NEGATIVE (NEGATIVE) 10/15/18 18:44 Urine Methadone Screen NEGATIVE (NEGATIVE) 10/15/18 18:44 Ur Barbiturates Screen NEGATIVE (NEGATIVE) 10/15/18 18:44 Ur Tricyclics Screen NEGATIVE (NEGATIVE) 10/15/18 18:44 Ur Phencyclidine Scrn NEGATIVE (NEGATIVE) 10/15/18 18:44 Amphetamines Screen NEGATIVE (NEGATIVE) 10/15/18 18:44 U Methamphetamines Scrn NEGATIVE (NEGATIVE) 10/15/18 18:44 U Benzodiazepines Scrn NEGATIVE (NEGATIVE) 10/15/18 18:44 U Cocaine Metab Screen NEGATIVE (NEGATIVE) 10/15/18 18:44 U Cannabinoids Screen NEGATIVE (NEGATIVE) 10/15/18 18:44 - Physical Exam Vitals and I&O: Vital Signs Temp 97.2 F 10/25/18 14:00 Pulse 62 10/25/18 16:38 Resp 20 10/25/18 14:00 BP 112/65 10/25/18 16:38 Pulse Ox 96 10/25/18 14:00 Intake & Output 10/24/18 10/25/18 10/25/18 18:59 06:59 18:59 Intake Total 1600 370 Balance 1600 370 Intake: Oral 1600 370 Other: # Voids 1 Active Medications: Current Medications Acetaminophen (Tylenol) 650 mg PO Q4HR PRN PRN Reason: Mild Pain / Temp above 100 Stop: 12/14/18 22:12 Last Admin: 10/23/18 14:56 Dose: 650 mg Acetaminophen (Tylenol) 325 mg PO DAILY [facility] Stop: 12/17/18 08:59 Last Admin: 10/25/18 09:00 Dose: 325 mg Al Hydrox/Mg Hydrox/Simethicone (Maalox) 30 ml PO Q4HR PRN PRN Reason: GI DISTRESS Stop: 12/14/18 22:05 Ascorbic Acid (Vitamin C) 500 mg PO DAILY [facility] Stop: 12/15/18 08:59 Last Admin: 10/25/18 09:00 Dose: 500 mg Ferrous Sulfate (Iron) 325 mg PO DAILY [facility] Stop: 12/15/18 08:59 Last Admin: 10/25/18 09:00 Dose: 325 mg Folic Acid (Folate) 1 mg PO DAILY [facility] Stop: 12/15/18 08:59 Last Admin: 10/25/18 09:00 Dose: 1 mg Lorazepam (Ativan) 0.5 mg PO Q4HR PRN; Protocol PRN Reason: Agitation Stop: 11/14/18 22:05 Last Admin: 10/25/18 10:15 Dose: 0.5 mg Memantine (Namenda) 5 mg PO BID [facility] Stop: 12/24/18 08:59 Last Admin: 10/25/18 16:41 Dose: 5 mg Metoprolol Tartrate (Lopressor) 50 mg PO BID [facility] Stop: 12/15/18 08:59 Last Admin: 10/25/18 16:38 Dose: 50 mg Multivitamins/Vitamin C (Theragran) 1 tab PO DAILY [facility] Stop: 12/17/18 08:59 Last Admin: 10/25/18 09:00 Dose: 1 tab Pantoprazole Sodium (Protonix) 40 mg PO DAILY [facility] Stop: 12/15/18 08:59 Last Admin: 10/25/18 10:09 Dose: 40 mg Quetiapine Fumarate (Seroquel) 25 mg PO BID [facility]; Protocol Stop: 12/15/18 08:59 Last Admin: 10/25/18 16:38 Dose: 25 mg Tramadol HCl (Ultram) 50 mg PO Q8H PRN PRN Reason: Pain (Severe) Stop: 12/14/18 22:13 Last Admin: 10/25/18 10:15 Dose: 50 mg Zolpidem Tartrate (Ambien) 5 mg PO HS PRN PRN Reason: Insomnia Stop: 12/14/18 22:05 Last Admin: 10/24/18 20:46 Dose: 5 mg General: weak, other (Irritable and Agitated.) HEENT: PERRLA Neck: Supple, No JVD Lungs: CTAB Cardiovascular: Normal S1, Normal S2 Abdomen: soft, non-distended Extremities: other (Hx of left lower extremity tibia and fibula surgery.) Neurological: no change, disorganized Internal Medicine Assmt/Plan - Assessment Assessment: Agitation Irritable Anemia Chronic Viral Hep C PUD GERD Hyponatremia Hypocalcemia Hypomagnesemia History of Seizures - Plan Plan: continue feso4 fall precautions cpm Nutritional Asmnt/Malnutr-PDOC - Dietary Evaluation Malnutrition Findings (Please click <Entered> for more info): Nutritional Asmnt/Malnutrition Start: 10/18/18 13: 58 Text: Status: Complete Freq: Protocol: Document 10/18/18 13:58 LCHENG (Rec: 10/18/18 14:07 LCDORONG ANN [email or web address]) Nutritional Asmnt/Malnutrition Patient General Information Nutritional Screening Moderate Risk Diagnosis Psychosis Pertinent Medical Hx/Surgical Hx PUD/GERD, seizrues, chronic viral hep C, anemia, LLE tib/ fib years ago Subjective Information Pt seen sitting in garfield-chair, confused, not able to participate communication. Per EMR, PO intake 100%. Current Diet Order/ Nutrition Support LORI Pertinent Medications vit C, iton, folate, theragran , protonix, seroquel Pertinent Labs 10/15 Na 134, Cr 0.6, Ca 8.5, Mg 1.8, Alb 3.0 Nutritional Hx/Data Height 5 ft 8 in Height (Calculated Centimeters) 172.7 Current Weight (lbs) 165 lb Weight (Calculated Kilograms) 74.8 Weight (Calculated Grams) 95281.7 [place] Body Weight 154 Body Mass Index (BMI) 25.0 Weight Status Overweight GI Symptoms GI Symptoms None Last BM 2/20 Difficult in: None Skin Integrity/Comment: intact Current %PO Good (75-100%) Estimated Nutritional Goals BEE in Kcals: Using Current wt Calories/Kcals/Kg 23-27 Kcals Calculated 2369-7831 Protein: Using Current wt Protein g/k Protein Calculated 75 Fluid: ml 1725-202ml (1ml/kcal) Nutritional Problem No current Nutrition Prob Problem N/A Malnutrition Alert Is there a minimum of two criteria No selected? Query Text:Check all the applicable criteria. A minimum of two criteria are recommended for diagnosis of either severe or non-severe malnutrition. Malnutrition Related to Morbid Obesity Malnutrition related to morbid obesity No Intervention/Recommendation Comments 1. Continue with LORI diet as ordered. Nurses to assist with meals as needed. 2. Monitor PO intake, wt, labs and skin integrity 3. F/U as low risk in 7 days Expected Outcomes/Goals Expected Outcomes/Goals 1. PO intake to meet at least 75% of nutritional needs. 2. Wt stability, skin to remain intact, labs to approach WNL.
[2018-10-26] MEDS: Pantoprazole 40 mg/Packet PO SCH (09:05)
[2018-10-26] MEDS: Ferrous Sulfate 325 MG TAB PO SCH (09:05)
[2018-10-26] MEDS: Multivitamin Tab PO SCH (09:06)
--- NOTE | 2018-10-26 10:30 | Internal Medicine Prog Note ---
Internal Medicine Subjective - Subjective Service Date: 10/26/18 Patient seen and examined:: chart reviewed Patient is:: awake, verbal, talking, agitated, confused, other (pt continues to be anxious, very depressed with no signs of pain.) Patient Complaints of:: other (General weakness.) Per staff patient has:: no adverse event, no episodes of fall, agitated, confused Internal Medicine Objective - Results Result Diagrams: 10/15/18 18:35 10/15/18 18:35 Recent Labs: Laboratory Last Values WBC 4.6 Th/cmm (4.8-10.8) L 10/15/18 18:35 RBC 3.42 Mil/cmm (3.80-5.80) L 10/15/18 18:35 Hgb 9.0 gm/dL (12-16) L 10/15/18 18:35 Hct 27.7 % (41.0-60) L 10/15/18 18:35 MCV 81.0 fl (80-99) 10/15/18 18:35 MCH 26.1 pg (27.0-31.0) L 10/15/18 18:35 MCHC Differential 32.3 pg (28.0-36.0) 10/15/18 18:35 RDW 25.8 % (11.5-20.0) H 10/15/18 18:35 Plt Count 216 Th/cmm (150-400) 10/15/18 18:35 MPV 6.9 fl 10/15/18 18:35 Neutrophils % 49.8 % (40.0-80.0) 10/15/18 18:35 Lymphocytes % 35.7 % (20.0-50.0) 10/15/18 18:35 Monocytes % 10.9 % (2.0-10.0) H 10/15/18 18:35 Eosinophils % 2.9 % (0.0-5.0) 10/15/18 18:35 Basophils % 0.7 % (0.0-2.0) 10/15/18 18:35 D-Dimer 480 ng/mL (100-400) H 10/15/18 18:35 Sodium 134 mEq/L (136-145) L 10/15/18 18:35 Potassium 4.2 mEq/L (3.5-5.1) 10/15/18 18:35 Chloride 103 mEq/L (98-107) 10/15/18 18:35 Carbon Dioxide 27.5 mEq/L (21.0-31.0) 10/15/18 18:35 Anion Gap 7.7 (7.0-16.0) 10/15/18 18:35 BUN 11 mg/dL (7-25) 10/15/18 18:35 Creatinine 0.6 mg/dL (0.7-1.3) L 10/15/18 18:35 Est GFR ( Amer) > 60.0 ml/min (>90) 10/15/18 18:35 Est GFR (Non-Af Amer) > 60.0 ml/min 10/15/18 18:35 BUN/Creatinine Ratio 18.3 10/15/18 18:35 Glucose 93 mg/dL (70-105) 10/15/18 18:35 Calcium 8.5 mg/dL (8.6-10.3) L 10/15/18 18:35 Phosphorus 3.5 mg/dL (2.5-5.0) 10/15/18 18:35 Magnesium 1.8 mg/dL (1.9-2.7) L 10/15/18 18:35 Total Bilirubin 0.9 mg/dL (0.3-1.0) 10/15/18 18:35 AST 72 U/L (13-39) H 10/15/18 18:35 ALT 23 U/L (7-52) 10/15/18 18:35 Alkaline Phosphatase 162 U/L (34-104) H 10/15/18 18:35 Total Protein 7.4 gm/dL (6.0-8.3) 10/15/18 18:35 Albumin 3.0 gm/dL (4.2-5.5) L 10/15/18 18:35 Globulin 4.4 gm/dL 10/15/18 18:35 Albumin/Globulin Ratio 0.7 (1.0-1.8) L 10/15/18 18:35 Triglycerides 37 mg/dL (<150) 10/15/18 18:35 Cholesterol 90 mg/dL (<200) 10/15/18 18:35 LDL Cholesterol Direct 43 mg/dL (75-193) L 10/15/18 18:35 HDL Cholesterol 43 mg/dL (23-92) 10/15/18 18:35 Urine Source CLEAN C 10/15/18 18:44 Urine Color STRAW 10/15/18 18:44 Urine Clarity SLIGHT HAZY (CLEAR) 10/15/18 18:44 Urine pH 7.5 (4.6 - 8.0) 10/15/18 18:44 Ur Specific [place] 1.020 (1.005-1.030) 10/15/18 18:44 Urine Protein NEGATIVE mg/dL (NEGATIVE) 10/15/18 18:44 Urine Glucose (UA) NEGATIVE mg/dL (NEGATIVE) 10/15/18 18:44 Urine Ketones NEGATIVE mg/dL (NEGATIVE) 10/15/18 18:44 Urine Blood NEGATIVE (NEGATIVE) 10/15/18 18:44 Urine Nitrate POSITIVE (NEGATIVE) H 10/15/18 18:44 Urine Bilirubin NEGATIVE (NEGATIVE) 10/15/18 18:44 Urine Urobilinogen 1.0 E.U./dL (0.2 - 1.0) 10/15/18 18:44 Ur Leukocyte Esterase NEGATIVE (NEGATIVE) 10/15/18 18:44 Urine RBC NONE SEEN /hpf (0-5) 10/15/18 18:44 Urine WBC 2-5 /hpf (0-5) 10/15/18 18:44 Ur Epithelial Cells RARE /lpf (FEW) 10/15/18 18:44 Urine Bacteria FEW /hpf (NONE SEEN) 10/15/18 18:44 Urine Opiates Screen NEGATIVE (NEGATIVE) 10/15/18 18:44 Urine Methadone Screen NEGATIVE (NEGATIVE) 10/15/18 18:44 Ur Barbiturates Screen NEGATIVE (NEGATIVE) 10/15/18 18:44 Ur Tricyclics Screen NEGATIVE (NEGATIVE) 10/15/18 18:44 Ur Phencyclidine Scrn NEGATIVE (NEGATIVE) 10/15/18 18:44 Amphetamines Screen NEGATIVE (NEGATIVE) 10/15/18 18:44 U Methamphetamines Scrn NEGATIVE (NEGATIVE) 10/15/18 18:44 U Benzodiazepines Scrn NEGATIVE (NEGATIVE) 10/15/18 18:44 U Cocaine Metab Screen NEGATIVE (NEGATIVE) 10/15/18 18:44 U Cannabinoids Screen NEGATIVE (NEGATIVE) 10/15/18 18:44 - Physical Exam Vitals and I&O: Vital Signs Temp 97.6 F 10/26/18 06:25 Pulse 69 10/26/18 09:06 Resp 20 10/26/18 10:14 BP 136/82 10/26/18 09:06 Pulse Ox 98 10/26/18 06:25 Intake & Output 10/25/18 10/26/18 10/26/18 18:59 06:59 18:59 Intake Total 1000 520 Balance 1000 520 Intake: Oral 1000 520 Other: # Voids 3 3 # Bowel Movements 1 1 Stool Characteristics Formed Formed Active Medications: Current Medications Acetaminophen (Tylenol) 650 mg PO Q4HR PRN PRN Reason: Mild Pain / Temp above 100 Stop: 12/14/18 22:12 Last Admin: 10/23/18 14:56 Dose: 650 mg Acetaminophen (Tylenol) 325 mg PO DAILY [facility] Stop: 12/17/18 08:59 Last Admin: 10/26/18 09:05 Dose: 325 mg Al Hydrox/Mg Hydrox/Simethicone (Maalox) 30 ml PO Q4HR PRN PRN Reason: GI DISTRESS Stop: 12/14/18 22:05 Ascorbic Acid (Vitamin C) 500 mg PO DAILY [facility] Stop: 12/15/18 08:59 Last Admin: 10/26/18 09:05 Dose: 500 mg Ferrous Sulfate (Iron) 325 mg PO DAILY [facility] Stop: 12/15/18 08:59 Last Admin: 10/26/18 09:05 Dose: 325 mg Folic Acid (Folate) 1 mg PO DAILY [facility] Stop: 12/15/18 08:59 Last Admin: 10/26/18 09:05 Dose: 1 mg Lorazepam (Ativan) 0.5 mg PO Q4HR PRN; Protocol PRN Reason: Agitation Stop: 11/14/18 22:05 Last Admin: 10/25/18 20:26 Dose: 0.5 mg Memantine (Namenda) 5 mg PO BID [facility] Stop: 12/24/18 08:59 Last Admin: 10/26/18 09:06 Dose: 5 mg Metoprolol Tartrate (Lopressor) 50 mg PO BID [facility] Stop: 12/15/18 08:59 Last Admin: 10/26/18 09:06 Dose: 50 mg Multivitamins/Vitamin C (Theragran) 1 tab PO DAILY [facility] Stop: 12/17/18 08:59 Last Admin: 10/26/18 09:06 Dose: 1 tab Pantoprazole Sodium (Protonix) 40 mg PO DAILY [facility] Stop: 12/15/18 08:59 Last Admin: 10/26/18 09:05 Dose: 40 mg Quetiapine Fumarate (Seroquel) 37.5 mg PO BID [facility]; Protocol Stop: 12/25/18 08:59 Last Admin: 10/26/18 09:04 Dose: 37.5 mg Tramadol HCl (Ultram) 50 mg PO Q8H PRN PRN Reason: Pain (Severe) Stop: 12/14/18 22:13 Last Admin: 10/25/18 23:48 Dose: 50 mg Zolpidem Tartrate (Ambien) 5 mg PO HS PRN PRN Reason: Insomnia Stop: 12/14/18 22:05 Last Admin: 10/24/18 20:46 Dose: 5 mg General: weak, other (Continues to have Mood swings, remains Irritable and easily Agitated.) HEENT: PERRLA Neck: Supple, No JVD Lungs: CTAB Cardiovascular: Normal S1, Normal S2 Abdomen: soft, non-distended Extremities: other (Hx of left lower extremity tibia and fibula surgery.) Neurological: no change, disorganized Internal Medicine Assmt/Plan - Assessment Assessment: Generl Weakness Mood swings Agitation Irritable Actively Psychotic Anemia Chronic Viral Hep C PUD GERD Hyponatremia Hypocalcemia Hypomagnesemia History of Seizures - Plan Plan: Continue to monitor patient closely Monitor Labs, Hemoglobin levels Continue present meds as directed Continue taking Ferrous Sulfate daily Monitor diet Fall precaution Seizure precaution Patient to followup with Dr. Montejo for Psych management Continue present care management Nutritional Asmnt/Malnutr-PDOC - Dietary Evaluation Malnutrition Findings (Please click <Entered> for more info): Nutritional Asmnt/Malnutrition Start: 10/18/18 13: 58 Text: Status: Complete Freq: Protocol: Document 10/18/18 13:58 BRITTNEY (Rec: 10/18/18 14:07 BRITTNEY ANN [email or web address]) Nutritional Asmnt/Malnutrition Patient General Information Nutritional Screening Moderate Risk Diagnosis Psychosis Pertinent Medical Hx/Surgical Hx PUD/GERD, seizrues, chronic viral hep C, anemia, LLE tib/ fib years ago Subjective Information Pt seen sitting in garfield-chair, confused, not able to participate communication. Per EMR, PO intake 100%. Current Diet Order/ Nutrition Support LORI Pertinent Medications vit C, iton, folate, theragran , protonix, seroquel Pertinent Labs 10/15 Na 134, Cr 0.6, Ca 8.5, Mg 1.8, Alb 3.0 Nutritional Hx/Data Height 1.73 m Height (Calculated Centimeters) 172.7 Current Weight (lbs) 74.843 kg Weight (Calculated Kilograms) 74.8 Weight (Calculated Grams) 17478.7 [place] Body Weight 154 Body Mass Index (BMI) 25.0 Weight Status Overweight GI Symptoms GI Symptoms None Last BM 10/17 Difficult in: None Skin Integrity/Comment: intact Current %PO Good (75-100%) Estimated Nutritional Goals BEE in Kcals: Using Current wt Calories/Kcals/Kg 23-27 Kcals Calculated 9093-0105 Protein: Using Current wt Protein g/k Protein Calculated 75 Fluid: ml 1725-2025ml (1ml/kcal) Nutritional Problem No current Nutrition Prob Problem N/A Malnutrition Alert Is there a minimum of two criteria No selected? Query Text:Check all the applicable criteria. A minimum of two criteria are recommended for diagnosis of either severe or non-severe malnutrition. Malnutrition Related to Morbid Obesity Malnutrition related to morbid obesity No Intervention/Recommendation Comments 1. Continue with LORI diet as ordered. Nurses to assist with meals as needed. 2. Monitor PO intake, wt, labs and skin integrity 3. F/U as low risk in 7 days Expected Outcomes/Goals Expected Outcomes/Goals 1. PO intake to meet at least 75% of nutritional needs. 2. Wt stability, skin to remain intact, labs to approach WNL.
[2018-10-27] MEDS: Pantoprazole 40 mg/Packet PO SCH (08:40)
[2018-10-27] MEDS: Ferrous Sulfate 325 MG TAB PO SCH (08:40)
[2018-10-27] MEDS: Multivitamin Tab PO SCH (08:41)
--- NOTE | 2018-10-27 13:05 | Progress Notes ---
DATE: 10/27/2018 Case was discussed with staff of the patient, reviewed records. The patient continues to be unpredictable, impulsive, easily agitated, confused, unable to participate in meaningful conversation or make safe plan for self-care, has been compliant with the medication with no side effects, no sedation, no nausea, no extrapyramidal symptoms. Dr. Rossi increased Seroquel yesterday to 37.5 mg twice a day and we will continue to work with the patient in group therapy, milieu therapy, and adjust the medication as needed. JOB# [id number]
--- NOTE | 2018-10-27 17:07 | Progress Notes ---
DATE: 10/27/2018 SUBJECTIVE: The patient was seen in the dining area, having breakfast. The patient appears to be guarded, easily gets frustrated and irritable, appears to be comfortable, in no acute distress. OBJECTIVE: VITAL SIGNS: Temperature 97.8, heart rate of 89, blood pressure 96/51, respirations 18, 97% on room air. HEENT: Head is atraumatic, normocephalic. Eyes: Bilateral conjunctivae are clear. Bilateral pupils are equally round and reactive. NECK: Supple. No JVD. CARDIOVASCULAR: S1 and S2. No murmur. PULMONARY: Clear to auscultation. GASTROINTESTINAL: Soft and nontender without guarding. Positive bowel sounds. MUSCULOSKELETAL: No clubbing. No cyanosis noted. ASSESSMENT: 1. Psychosis. 2. Rule out dementia. 3. Osteoarthritis. 4. Iron deficiency anemia. 5. Hypertension. 6. Gastroesophageal reflux disease. PLAN: We will continue to keep the patient inpatient to Psychiatric Unit. We will follow up with psychiatrist to monitor the patient's condition and behavior. Treatment plans were discussed with the patient's nurse. Treatment plans were discussed with Dr. Recinos. JOB# [id number]
[2018-10-28] MEDS: Pantoprazole 40 mg/Packet PO SCH (09:20)
[2018-10-28] MEDS: Multivitamin Tab PO SCH (09:20)
[2018-10-28] MEDS: Ferrous Sulfate 325 MG TAB PO SCH (09:21)
--- NOTE | 2018-10-28 10:54 | Progress Notes ---
DATE: 10/19/2018 DATE OF SERVICE: 10/19/2018 SUBJECTIVE: Chart reviewed and the patient interviewed. Also discussed the patient's condition with the staff and reviewed records and labs. The patient is still confused and is still in irritable mood. The patient also is still interacting minimally with others and still have difficulty following directions and he is still suspicious and is still paranoid. The patient also is still unable to carry on coherent conversation and he is still unable to follow directions. The patient also still has episodes of irritability and anger. Otherwise, the patient is compliant with taking all his medications and the patient continued to take Seroquel 25 mg twice a day with no side effects. ASSESSMENT: The patient is still agitated and confused and needs redirections. TREATMENT PLAN: We will continue to monitor his behavior and his condition closely. Also, we will continue working on his impulsivity and poor impulse control and continue to follow up. [facility]# [id number]
--- NOTE | 2018-10-28 12:16 | Progress Notes ---
DATE: 10/25/2018 DATE: 10/25/2018. SUBJECTIVE: Chart reviewed and the patient interviewed. Also discussed the patient's condition with the staff and reviewed records and labs. The patient is still restless and is still easily agitated and easily irritable. The patient also continued to have sexual inappropriate behavior. The patient also is still confused and is still needs lots of redirections. Also, thinks that his roommate is his . Otherwise, the patient continued to comply with taking his medications with no side effects of medications. ASSESSMENT: The patient is still confused and is still agitated and needs lots of redirections. Otherwise, the patient is compliant with taking his medications with no side effects of medications. The patient is still confused and is still agitated. TREATMENT PLAN: Continue to monitor his behavior and his condition closely. Also, continue Seroquel 25 mg twice a day and Namenda 5 mg twice a day and continue to follow up closely. JOB# [id number]
--- NOTE | 2018-10-28 12:39 | Internal Medicine Prog Note ---
Internal Medicine Subjective - Subjective Patient is:: awake, verbal, talking, agitated, confused, other (easily irritable ) Patient Complaints of:: other (General weakness.) Per staff patient has:: no adverse event, no episodes of fall, agitated, confused Internal Medicine Objective - Results Result Diagrams: 10/15/18 18:35 10/15/18 18:35 Recent Labs: Laboratory Last Values WBC 4.6 Th/cmm (4.8-10.8) L 10/15/18 18:35 RBC 3.42 Mil/cmm (3.80-5.80) L 10/15/18 18:35 Hgb 9.0 gm/dL (12-16) L 10/15/18 18:35 Hct 27.7 % (41.0-60) L 10/15/18 18:35 MCV 81.0 fl (80-99) 10/15/18 18:35 MCH 26.1 pg (27.0-31.0) L 10/15/18 18:35 MCHC Differential 32.3 pg (28.0-36.0) 10/15/18 18:35 RDW 25.8 % (11.5-20.0) H 10/15/18 18:35 Plt Count 216 Th/cmm (150-400) 10/15/18 18:35 MPV 6.9 fl 10/15/18 18:35 Neutrophils % 49.8 % (40.0-80.0) 10/15/18 18:35 Lymphocytes % 35.7 % (20.0-50.0) 10/15/18 18:35 Monocytes % 10.9 % (2.0-10.0) H 10/15/18 18:35 Eosinophils % 2.9 % (0.0-5.0) 10/15/18 18:35 Basophils % 0.7 % (0.0-2.0) 10/15/18 18:35 D-Dimer 480 ng/mL (100-400) H 18 18:35 Sodium 134 mEq/L (136-145) L 10/15/18 18:35 Potassium 4.2 mEq/L (3.5-5.1) 10/15/18 18:35 Chloride 103 mEq/L (98-107) 10/15/18 18:35 Carbon Dioxide 27.5 mEq/L (21.0-31.0) 10/15/18 18:35 Anion Gap 7.7 (7.0-16.0) 10/15/18 18:35 BUN 11 mg/dL (7-25) 10/15/18 18:35 Creatinine 0.6 mg/dL (0.7-1.3) L 10/15/18 18:35 Est GFR ( Amer) > 60.0 ml/min (>90) 10/15/18 18:35 Est GFR (Non-Af Amer) > 60.0 ml/min 10/15/18 18:35 BUN/Creatinine Ratio 18.3 10/15/18 18:35 Glucose 93 mg/dL (70-105) 10/15/18 18:35 Calcium 8.5 mg/dL (8.6-10.3) L 10/15/18 18:35 Phosphorus 3.5 mg/dL (2.5-5.0) 10/15/18 18:35 Magnesium 1.8 mg/dL (1.9-2.7) L 10/15/18 18:35 Total Bilirubin 0.9 mg/dL (0.3-1.0) 10/15/18 18:35 AST 72 U/L (13-39) H 10/15/18 18:35 ALT 23 U/L (7-52) 10/15/18 18:35 Alkaline Phosphatase 162 U/L (34-104) H 10/15/18 18:35 Total Protein 7.4 gm/dL (6.0-8.3) 10/15/18 18:35 Albumin 3.0 gm/dL (4.2-5.5) L 10/15/18 18:35 Globulin 4.4 gm/dL 10/15/18 18:35 Albumin/Globulin Ratio 0.7 (1.0-1.8) L 10/15/18 18:35 Triglycerides 37 mg/dL (<150) 10/15/18 18:35 Cholesterol 90 mg/dL (<200) 10/15/18 18:35 LDL Cholesterol Direct 43 mg/dL (75-193) L 10/15/18 18:35 HDL Cholesterol 43 mg/dL (23-92) 10/15/18 18:35 Urine Source CLEAN C 10/15/18 18:44 Urine Color STRAW 10/15/18 18:44 Urine Clarity SLIGHT HAZY (CLEAR) 10/15/18 18:44 Urine pH 7.5 (4.6 - 8.0) 10/15/18 18:44 Ur Specific [place] 1.020 (1.005-1.030) 10/15/18 18:44 Urine Protein NEGATIVE mg/dL (NEGATIVE) 10/15/18 18:44 Urine Glucose (UA) NEGATIVE mg/dL (NEGATIVE) 10/15/18 18:44 Urine Ketones NEGATIVE mg/dL (NEGATIVE) 10/15/18 18:44 Urine Blood NEGATIVE (NEGATIVE) 10/15/18 18:44 Urine Nitrate POSITIVE (NEGATIVE) H 10/15/18 18:44 Urine Bilirubin NEGATIVE (NEGATIVE) 10/15/18 18:44 Urine Urobilinogen 1.0 E.U./dL (0.2 - 1.0) 10/15/18 18:44 Ur Leukocyte Esterase NEGATIVE (NEGATIVE) 10/15/18 18:44 Urine RBC NONE SEEN /hpf (0-5) 10/15/18 18:44 Urine WBC 2-5 /hpf (0-5) 10/15/18 18:44 Ur Epithelial Cells RARE /lpf (FEW) 10/15/18 18:44 Urine Bacteria FEW /hpf (NONE SEEN) 10/15/18 18:44 Urine Opiates Screen NEGATIVE (NEGATIVE) 10/15/18 18:44 Urine Methadone Screen NEGATIVE (NEGATIVE) 10/15/18 18:44 Ur Barbiturates Screen NEGATIVE (NEGATIVE) 10/15/18 18:44 Ur Tricyclics Screen NEGATIVE (NEGATIVE) 10/15/18 18:44 Ur Phencyclidine Scrn NEGATIVE (NEGATIVE) 10/15/18 18:44 Amphetamines Screen NEGATIVE (NEGATIVE) 10/15/18 18:44 U Methamphetamines Scrn NEGATIVE (NEGATIVE) 10/15/18 18:44 U Benzodiazepines Scrn NEGATIVE (NEGATIVE) 10/15/18 18:44 U Cocaine Metab Screen NEGATIVE (NEGATIVE) 10/15/18 18:44 U Cannabinoids Screen NEGATIVE (NEGATIVE) 10/15/18 18:44 - Physical Exam Vitals and I&O: Vital Signs Temp 98.2 F 10/28/18 06:33 Pulse 65 10/28/18 09:19 Resp 20 10/28/18 10:03 BP 145/84 10/28/18 09:19 Pulse Ox 100 10/28/18 06:33 Intake & Output 10/27/18 10/28/18 10/28/18 18:59 06:59 18:59 Intake Total 900 240 Balance 900 240 Intake: Oral 900 240 Other: # Voids 4 2 # Bowel Movements 1 Stool Characteristics Formed Formed Active Medications: Current Medications Acetaminophen (Tylenol) 650 mg PO Q4HR PRN PRN Reason: Mild Pain / Temp above 100 Stop: 12/14/18 22:12 Last Admin: 10/27/18 04:48 Dose: 650 mg Acetaminophen (Tylenol) 325 mg PO DAILY [facility] Stop: 12/17/18 08:59 Last Admin: 10/28/18 09:20 Dose: 325 mg Al Hydrox/Mg Hydrox/Simethicone (Maalox) 30 ml PO Q4HR PRN PRN Reason: GI DISTRESS Stop: 12/14/18 22:05 Ascorbic Acid (Vitamin C) 500 mg PO DAILY [facility] Stop: 12/15/18 08:59 Last Admin: 10/28/18 09:20 Dose: 500 mg Ferrous Sulfate (Iron) 325 mg PO DAILY [facility] Stop: 12/15/18 08:59 Last Admin: 10/28/18 09:21 Dose: 325 mg Folic Acid (Folate) 1 mg PO DAILY [facility] Stop: 12/15/18 08:59 Last Admin: 10/28/18 09:20 Dose: 1 mg Lorazepam (Ativan) 0.5 mg PO Q4HR PRN; Protocol PRN Reason: Agitation Stop: 11/14/18 22:05 Last Admin: 10/27/18 19:45 Dose: 0.5 mg Memantine (Namenda) 5 mg PO BID [facility] Stop: 12/24/18 08:59 Last Admin: 10/28/18 09:20 Dose: 5 mg Metoprolol Tartrate (Lopressor) 50 mg PO BID [facility] Stop: 12/15/18 08:59 Last Admin: 10/28/18 09:19 Dose: 50 mg Multivitamins/Vitamin C (Theragran) 1 tab PO DAILY [facility] Stop: 12/17/18 08:59 Last Admin: 10/28/18 09:20 Dose: 1 tab Pantoprazole Sodium (Protonix) 40 mg PO DAILY [facility] Stop: 12/15/18 08:59 Last Admin: 10/28/18 09:20 Dose: 40 mg Quetiapine Fumarate (Seroquel) 37.5 mg PO BID [facility]; Protocol Stop: 12/25/18 08:59 Last Admin: 10/28/18 09:20 Dose: 37.5 mg Tramadol HCl (Ultram) 50 mg PO Q8H PRN PRN Reason: Pain (Severe) Stop: 12/14/18 22:13 Last Admin: 10/27/18 19:45 Dose: 50 mg Zolpidem Tartrate (Ambien) 5 mg PO HS PRN PRN Reason: Insomnia Stop: 12/14/18 22:05 Last Admin: 10/27/18 21:53 Dose: 5 mg General: weak, other (Continues to have Mood swings, remains Irritable and easily Agitated.) HEENT: PERRLA Neck: Supple, No JVD Lungs: CTAB Cardiovascular: Normal S1, Normal S2 Abdomen: soft, non-distended Extremities: other (Hx of left lower extremity tibia and fibula surgery.) Neurological: no change, disorganized Internal Medicine Assmt/Plan - Assessment Assessment: Generl Weakness Mood swings Agitation Irritable Actively Psychotic Anemia Chronic Viral Hep C PUD GERD Hyponatremia Hypocalcemia Hypomagnesemia History of Seizures - Plan Plan: Continue to monitor patient closely Monitor Labs, Hemoglobin levels Continue present meds as directed Continue taking Ferrous Sulfate daily Monitor diet Fall precaution Seizure precaution Patient to followup with Dr. Montejo for Psych management Continue present care management Nutritional Asmnt/Malnutr-PDOC - Dietary Evaluation Malnutrition Findings (Please click <Entered> for more info): Nutritional Asmnt/Malnutrition Start: 10/18/18 13: 58 Text: Status: Complete Freq: Protocol: Document 10/18/18 13:58 LCHENG (Rec: 10/18/18 14:07 LCHENG ANN [email or web address]-[email or web address]) Nutritional Asmnt/Malnutrition Patient General Information Nutritional Screening Moderate Risk Diagnosis Psychosis Pertinent Medical Hx/Surgical Hx PUD/GERD, seizrues, chronic viral hep C, anemia, LLE tib/ fib years ago Subjective Information Pt seen sitting in garfield-chair, confused, not able to participate communication. Per EMR, PO intake 100%. Current Diet Order/ Nutrition Support LORI Pertinent Medications vit C, iton, folate, theragran , protonix, seroquel Pertinent Labs 10/15 Na 134, Cr 0.6, Ca 8.5, Mg 1.8, Alb 3.0 Nutritional Hx/Data Height 1.73 m Height (Calculated Centimeters) 172.7 Current Weight (lbs) 74.843 kg Weight (Calculated Kilograms) 74.8 Weight (Calculated Grams) 18953.7 [place] Body Weight 154 Body Mass Index (BMI) 25.0 Weight Status Overweight GI Symptoms GI Symptoms None Last BM 10/17 Difficult in: None Skin Integrity/Comment: intact Current %PO Good (75-100%) Estimated Nutritional Goals BEE in Kcals: Using Current wt Calories/Kcals/Kg 23-27 Kcals Calculated 5583-8290 Protein: Using Current wt Protein g/k Protein Calculated 75 Fluid: ml 1725-2024ml (1ml/kcal) Nutritional Problem No current Nutrition Prob Problem N/A Malnutrition Alert Is there a minimum of two criteria No selected? Query Text:Check all the applicable criteria. A minimum of two criteria are recommended for diagnosis of either severe or non-severe malnutrition. Malnutrition Related to Morbid Obesity Malnutrition related to morbid obesity No Intervention/Recommendation Comments 1. Continue with LORI diet as ordered. Nurses to assist with meals as needed. 2. Monitor PO intake, wt, labs and skin integrity 3. F/U as low risk in 7 days Expected Outcomes/Goals Expected Outcomes/Goals 1. PO intake to meet at least 75% of nutritional needs. 2. Wt stability, skin to remain intact, labs to approach WNL.
--- NOTE | 2018-10-28 17:19 | Progress Notes ---
DATE: 10/26/2018 SUBJECTIVE: Chart reviewed and the patient interviewed. Also discussed the patient's condition with the staff and reviewed records and labs. The patient continued to be easily agitated and continued to be in angry and in irritable mood. The patient also is still restless and still has labile affect. The patient also still needs close monitoring and needs redirections. Otherwise, the patient continued to comply with taking medications with no side effects. ASSESSMENT: The patient is still psychotic and agitated. TREATMENT PLAN: Continue to monitor his behavior and his condition closely. Also continue adjusting psychotropic medications. Also, we will increase Seroquel to 37.5 mg twice a day and continue to follow up closely. [facility]# [id number]
--- NOTE | 2018-10-28 17:52 | Psychiatric Evaluation ---
DATE OF SERVICE: 10/28/2018 PSYCHIATRIC INITIAL EVALUATION AND MENTAL STATUS EXAM PATIENT'S AGE: 63. SEX: Male. PHYSICIAN: Dr. Rossi. CHIEF COMPLAINT: Agitation. HISTORY OF PRESENT ILLNESS: The patient is a 63-year-old male who was transferred from [facility] because of increased agitation. The patient has been increasingly agitated and has been increasingly irritable. The patient also has not been able to follow any of staff directions. The patient also continued to be agitated and in irritable mood upon arrival to the hospital and need close observation. The patient has been taking Thorazine 200 mg twice a day and Seroquel 200 mg twice a day, but he still continued to be agitated and confused. The patient also is taking Topamax 100 mg twice a day as well as Lexapro 10 mg every day. The patient at times refused to take his medications. He also has been in angry and irritable mood constantly. PAST PSYCHIATRIC HISTORY: The patient has a history of confusion and agitation and what seems to be a schizophrenic disorder. PAST MEDICAL HISTORY: The patient has a history of seizure disorder as well as peptic ulcer disease and gastroesophageal reflux disease. SOCIAL HISTORY: The patient lives in [facility]. No known alcohol or drug use. ALLERGIES: No known allergies. MENTAL STATUS EXAMINATION: The patient appears his stated age. Anxious. Cooperative. Episodes of irritability during my interview. Thought processes are circumstantial, but no flight of ideas. The patient denies auditory or visual hallucinations, but seems to be preoccupied. The patient denied any thoughts of suicide or homicide. The patient is alert and oriented to time, place, person and situation. Intact immediate, recent and remote memories. Poor insight and poor judgment. Seems to be of average intelligence based on his verbal ability. ASSESSMENT: PRIMARY DIAGNOSIS: Schizoaffective disorder, manic episode, with psychotic features and behavioral disturbances. TREATMENT PLAN: We will start Seroquel in a dose of 25 mg twice a day. We will adjust psychotropic medications and work on behavioral modification. ESTIMATED LENGTH OF STAY: 5-7 days. THE PATIENT'S STRENGTHS AND WEAKNESSES: The patient's strength is not clear at this time. Weaknesses are his ineffective coping and poor impulse control. AFTER DISCHARGE PLAN: Outpatient treatment and followup will continue in [facility]. JOB# [id number]
--- NOTE | 2018-10-28 21:43 | Progress Notes ---
DATE: 10/28/2018 Case was discussed with staff of the patient, reviewed records. Continues to be easily agitated, irritable. Continues to be inappropriate at times, acting out sexually, confused, needing a lot of direction. He continues to have poor insight. He is compliant with the medication with no side effects. He is demented, confused. No side effects with the medication, no sedation, no nausea and no extrapyramidal symptoms. We will continue to work with the patient in group therapy, milieu therapy, adjust medication as needed. JOB# [id number]
[2018-10-29] MEDS: Pantoprazole 40 mg/Packet PO SCH (08:49)
[2018-10-29] MEDS: Ferrous Sulfate 325 MG TAB PO SCH (08:49)
[2018-10-29] MEDS: Multivitamin Tab PO SCH (08:51)
--- NOTE | 2018-10-29 09:11 | Internal Medicine Prog Note ---
Internal Medicine Subjective - Subjective Service Date: 10/29/18 Patient seen and examined:: chart reviewed Patient is:: awake, verbal, talking, agitated, confused, other (easily irritable ) Patient Complaints of:: other (General weakness.) Per staff patient has:: no adverse event, no episodes of fall, agitated, confused Internal Medicine Objective - Results Result Diagrams: 10/15/18 18:35 10/15/18 18:35 Recent Labs: Laboratory Last Values WBC 4.6 Th/cmm (4.8-10.8) L 10/15/18 18:35 RBC 3.42 Mil/cmm (3.80-5.80) L 10/15/18 18:35 Hgb 9.0 gm/dL (12-16) L 10/15/18 18:35 Hct 27.7 % (41.0-60) L 10/15/18 18:35 MCV 81.0 fl (80-99) 10/15/18 18:35 MCH 26.1 pg (27.0-31.0) L 10/15/18 18:35 MCHC Differential 32.3 pg (28.0-36.0) 10/15/18 18:35 RDW 25.8 % (11.5-20.0) H 10/15/18 18:35 Plt Count 216 Th/cmm (150-400) 10/15/18 18:35 MPV 6.9 fl 10/15/18 18:35 Neutrophils % 49.8 % (40.0-80.0) 10/15/18 18:35 Lymphocytes % 35.7 % (20.0-50.0) 10/15/18 18:35 Monocytes % 10.9 % (2.0-10.0) H 10/15/18 18:35 Eosinophils % 2.9 % (0.0-5.0) 10/15/18 18:35 Basophils % 0.7 % (0.0-2.0) 10/15/18 18:35 D-Dimer 480 ng/mL (100-400) H 10/15/18 18:35 Sodium 134 mEq/L (136-145) L 10/15/18 18:35 Potassium 4.2 mEq/L (3.5-5.1) 10/15/18 18:35 Chloride 103 mEq/L (98-107) 10/15/18 18:35 Carbon Dioxide 27.5 mEq/L (21.0-31.0) 10/15/18 18:35 Anion Gap 7.7 (7.0-16.0) 10/15/18 18:35 BUN 11 mg/dL (7-25) 10/15/18 18:35 Creatinine 0.6 mg/dL (0.7-1.3) L 10/15/18 18:35 Est GFR ( Amer) > 60.0 ml/min (>90) 10/15/18 18:35 Est GFR (Non-Af Amer) > 60.0 ml/min 10/15/18 18:35 BUN/Creatinine Ratio 18.3 10/15/18 18:35 Glucose 93 mg/dL (70-105) 10/15/18 18:35 Calcium 8.5 mg/dL (8.6-10.3) L 10/15/18 18:35 Phosphorus 3.5 mg/dL (2.5-5.0) 10/15/18 18:35 Magnesium 1.8 mg/dL (1.9-2.7) L 10/15/18 18:35 Total Bilirubin 0.9 mg/dL (0.3-1.0) 10/15/18 18:35 AST 72 U/L (13-39) H 10/15/18 18:35 ALT 23 U/L (7-52) 10/15/18 18:35 Alkaline Phosphatase 162 U/L (34-104) H 10/15/18 18:35 Total Protein 7.4 gm/dL (6.0-8.3) 10/15/18 18:35 Albumin 3.0 gm/dL (4.2-5.5) L 10/15/18 18:35 Globulin 4.4 gm/dL 10/15/18 18:35 Albumin/Globulin Ratio 0.7 (1.0-1.8) L 10/15/18 18:35 Triglycerides 37 mg/dL (<150) 10/15/18 18:35 Cholesterol 90 mg/dL (<200) 10/15/18 18:35 LDL Cholesterol Direct 43 mg/dL (75-193) L 10/15/18 18:35 HDL Cholesterol 43 mg/dL (23-92) 10/15/18 18:35 Urine Source CLEAN C 10/15/18 18:44 Urine Color STRAW 10/15/18 18:44 Urine Clarity SLIGHT HAZY (CLEAR) 10/15/18 18:44 Urine pH 7.5 (4.6 - 8.0) 10/15/18 18:44 Ur Specific [place] 1.020 (1.005-1.030) 10/15/18 18:44 Urine Protein NEGATIVE mg/dL (NEGATIVE) 10/15/18 18:44 Urine Glucose (UA) NEGATIVE mg/dL (NEGATIVE) 10/15/18 18:44 Urine Ketones NEGATIVE mg/dL (NEGATIVE) 10/15/18 18:44 Urine Blood NEGATIVE (NEGATIVE) 10/15/18 18:44 Urine Nitrate POSITIVE (NEGATIVE) H 10/15/18 18:44 Urine Bilirubin NEGATIVE (NEGATIVE) 10/15/18 18:44 Urine Urobilinogen 1.0 E.U./dL (0.2 - 1.0) 10/15/18 18:44 Ur Leukocyte Esterase NEGATIVE (NEGATIVE) 10/15/18 18:44 Urine RBC NONE SEEN /hpf (0-5) 10/15/18 18:44 Urine WBC 2-5 /hpf (0-5) 10/15/18 18:44 Ur Epithelial Cells RARE /lpf (FEW) 10/15/18 18:44 Urine Bacteria FEW /hpf (NONE SEEN) 10/15/18 18:44 Urine Opiates Screen NEGATIVE (NEGATIVE) 10/15/18 18:44 Urine Methadone Screen NEGATIVE (NEGATIVE) 10/15/18 18:44 Ur Barbiturates Screen NEGATIVE (NEGATIVE) 10/15/18 18:44 Ur Tricyclics Screen NEGATIVE (NEGATIVE) 10/15/18 18:44 Ur Phencyclidine Scrn NEGATIVE (NEGATIVE) 10/15/18 18:44 Amphetamines Screen NEGATIVE (NEGATIVE) 10/15/18 18:44 U Methamphetamines Scrn NEGATIVE (NEGATIVE) 10/15/18 18:44 U Benzodiazepines Scrn NEGATIVE (NEGATIVE) 10/15/18 18:44 U Cocaine Metab Screen NEGATIVE (NEGATIVE) 10/15/18 18:44 U Cannabinoids Screen NEGATIVE (NEGATIVE) 10/15/18 18:44 - Physical Exam Vitals and I&O: Vital Signs Temp 97.9 F 10/29/18 06:14 Pulse 67 10/29/18 08:50 Resp 18 10/29/18 06:14 BP 115/64 10/29/18 08:50 Pulse Ox 97 10/29/18 06:14 Intake & Output 10/28/18 10/29/18 10/29/18 18:59 06:59 18:59 Intake Total 500 480 Balance 500 480 Intake: Oral 500 480 Other: # Voids 3 2 # Bowel Movements 1 Stool Characteristics Formed Active Medications: Current Medications Acetaminophen (Tylenol) 650 mg PO Q4HR PRN PRN Reason: Mild Pain / Temp above 100 Stop: 12/14/18 22:12 Last Admin: 10/29/18 01:14 Dose: 650 mg Acetaminophen (Tylenol) 325 mg PO DAILY [facility] Stop: 12/17/18 08:59 Last Admin: 10/29/18 08:53 Dose: 325 mg Al Hydrox/Mg Hydrox/Simethicone (Maalox) 30 ml PO Q4HR PRN PRN Reason: GI DISTRESS Stop: 12/14/18 22:05 Ascorbic Acid (Vitamin C) 500 mg PO DAILY [facility] Stop: 12/15/18 08:59 Last Admin: 10/29/18 08:51 Dose: 500 mg Ferrous Sulfate (Iron) 325 mg PO DAILY [facility] Stop: 12/15/18 08:59 Last Admin: 10/29/18 08:49 Dose: 325 mg Folic Acid (Folate) 1 mg PO DAILY [facility] Stop: 12/15/18 08:59 Last Admin: 10/29/18 08:51 Dose: 1 mg Lorazepam (Ativan) 0.5 mg PO Q4HR PRN; Protocol PRN Reason: Agitation Stop: 11/14/18 22:05 Last Admin: 10/27/18 19:45 Dose: 0.5 mg Memantine (Namenda) 5 mg PO BID [facility] Stop: 12/24/18 08:59 Last Admin: 10/29/18 08:51 Dose: 5 mg Metoprolol Tartrate (Lopressor) 50 mg PO BID [facility] Stop: 12/15/18 08:59 Last Admin: 10/29/18 08:50 Dose: 50 mg Multivitamins/Vitamin C (Theragran) 1 tab PO DAILY [facility] Stop: 12/17/18 08:59 Last Admin: 10/29/18 08:51 Dose: 1 tab Pantoprazole Sodium (Protonix) 40 mg PO DAILY [facility] Stop: 12/15/18 08:59 Last Admin: 10/29/18 08:49 Dose: 40 mg Quetiapine Fumarate (Seroquel) 37.5 mg PO BID [facility]; Protocol Stop: 12/25/18 08:59 Last Admin: 10/29/18 08:49 Dose: 37.5 mg Tramadol HCl (Ultram) 50 mg PO Q8H PRN PRN Reason: Pain (Severe) Stop: 12/14/18 22:13 Last Admin: 10/29/18 04:45 Dose: 50 mg Zolpidem Tartrate (Ambien) 5 mg PO HS PRN PRN Reason: Insomnia Stop: 12/14/18 22:05 Last Admin: 10/28/18 21:06 Dose: 5 mg General: weak, other (Continues to have Mood swings, acting out sexually, needs alot of direction, poor insight.) HEENT: PERRLA Neck: Supple, No JVD Lungs: CTAB Cardiovascular: Normal S1, Normal S2 Abdomen: soft, non-distended Extremities: other (Hx of left lower extremity tibia and fibula surgery.) Neurological: no change, disorganized Internal Medicine Assmt/Plan - Assessment Assessment: General Weakness Mood swings Inappropriate behavior, Acting out sexually Agitation Irritable Actively Psychotic Anemia Chronic Viral Hep C PUD GERD Hyponatremia Hypocalcemia Hypomagnesemia History of Seizures - Plan Plan: Continue to monitor patient closely Monitor Labs, Hemoglobin levels Continue present meds as directed Continue taking Ferrous Sulfate daily Monitor diet Fall precaution Seizure precaution Patient to followup with Dr. Montejo for Psych management Continue present care management Nutritional Asmnt/Malnutr-PDOC - Dietary Evaluation Malnutrition Findings (Please click <Entered> for more info): Nutritional Asmnt/Malnutrition Start: 10/18/18 13: 58 Text: Status: Complete Freq: Protocol: Document 10/18/18 13:58 BRITTNEY (Rec: 10/18/18 14:07 BRITTNEY ANN MARIE-[email or web address]) Nutritional Asmnt/Malnutrition Patient General Information Nutritional Screening Moderate Risk Diagnosis Psychosis Pertinent Medical Hx/Surgical Hx PUD/GERD, seizrues, chronic viral hep C, anemia, LLE tib/ fib years ago Subjective Information Pt seen sitting in garfield-chair, confused, not able to participate communication. Per EMR, PO intake 100%. Current Diet Order/ Nutrition Support LORI Pertinent Medications vit C, iton, folate, theragran , protonix, seroquel Pertinent Labs 10/15 Na 134, Cr 0.6, Ca 8.5, Mg 1.8, Alb 3.0 Nutritional Hx/Data Height 1.73 m Height (Calculated Centimeters) 172.7 Current Weight (lbs) 74.843 kg Weight (Calculated Kilograms) 74.8 Weight (Calculated Grams) 53976.7 [place] Body Weight 154 Body Mass Index (BMI) 25.0 Weight Status Overweight GI Symptoms GI Symptoms None Last BM 10/17 Difficult in: None Skin Integrity/Comment: intact Current %PO Good (75-100%) Estimated Nutritional Goals BEE in Kcals: Using Current wt Calories/Kcals/Kg 23-27 Kcals Calculated 3429-6766 Protein: Using Current wt Protein g/k Protein Calculated 75 Fluid: ml 1725-2024ml (1ml/kcal) Nutritional Problem No current Nutrition Prob Problem N/A Malnutrition Alert Is there a minimum of two criteria No selected? Query Text:Check all the applicable criteria. A minimum of two criteria are recommended for diagnosis of either severe or non-severe malnutrition. Malnutrition Related to Morbid Obesity Malnutrition related to morbid obesity No Intervention/Recommendation Comments 1. Continue with LORI diet as ordered. Nurses to assist with meals as needed. 2. Monitor PO intake, wt, labs and skin integrity 3. F/U as low risk in 7 days Expected Outcomes/Goals Expected Outcomes/Goals 1. PO intake to meet at least 75% of nutritional needs. 2. Wt stability, skin to remain intact, labs to approach WNL.
--- NOTE | 2018-10-29 21:50 | Discharge Summary ---
DATE OF DISCHARGE: 10/29/2018 FINAL DIAGNOSES AND PRIMARY DIAGNOSES: Schizoaffective disorder, manic episode, with psychotic features. REASON FOR HOSPITALIZATION: The patient was admitted to the hospital from the [facility] because of increased agitation and because of depressed mood and was not able to follow any directions. HOSPITAL COURSE: The patient continued to be agitated and in irritable mood. Also needed lots of redirections. The patient was started on Seroquel and the dose adjusted to 37.5 mg twice a day and also Namenda in a dose of 5 mg twice a day. Gradually, the patient's affect was brighter. The patient was less irritable and less agitated. The patient was discharged from the hospital with plans for outpatient treatment in [facility]. EXPECTED OUTCOME AFTER DISCHARGE: Fair if the patient continues with his outpatient treatment and follow up with discharge plans. [facility]# [id number]
== END 2018-10-29 15:20 | DRG 885 ==
LOC: ER 18:16 → GERO 21:24
PROVIDERS: ADMIT Psychiatry & Neurology Psychiatry; ATTEND Psychiatry & Neurology Psychiatry
DX: F25.0 Schizoaffective disorder, bipolar type (principal); B18.2 Chronic viral hepatitis C; E87.1 Hypo-osmolality and hyponatremia; F23 Brief psychotic disorder; R45.1 Restlessness and agitation; K21.9 Gastro-esophageal reflux disease without esophagitis; D64.9 Anemia, unspecified; D72.819 Decreased white blood cell count, unspecified; E83.51 Hypocalcemia; E83.42 Hypomagnesemia; F91.8 Other conduct disorders; Z87.11 Personal history of peptic ulcer disease
CPT/HCPCS: 36415-UA; 80053-TC; 80061-TC; 80307; 81001-TC; 83036-90; 83735-TC; 84100-TC; 85025-TC; 85379-TC; 87086-90; 93971-TC-LT; G0410; Z7610